=== PATIENT | female | born 1990 | race Caucasian/White ===

== ENCOUNTER 2018-11-14 05:46 | Inpatient (IN) | payer BC ==
--- NOTE | 2018-11-13 11:49 | PCM.LDHP ---
L&D History of Present Illness - General Date of Service: 11/13/18 Admit Problem/Dx: Admission Diagnosis/Problem Admission Diagnosis/Problem Source of Information: Patient History Limitations: Reports: No Limitations - History of Present Illness Introduction:: Brent Castle is a 27 year old at 38 weeks 6 days (SE[place]STI[place]N 11/21/2018) by LMP consistent with 13 week ultrasound who presents for pre-operative appointment for schedule repeat section on 11/14/2018. She is overall doing well at today's appointment. She reports that she continues to have some occasional migraine headaches that are able to be controlled with Fioricet. She also reports that she has had several outbreaks of her psoriasis on her hands especially on the fingers on the left hand but overall minimal amounts of rashes due to the psoriasis. She reports that she does have 10-12 Jasiel Ruvalcaba contractions throughout the day. These are more common with movement. They are not regular or painful. She denies any leaking of fluid or vaginal bleeding. She reports good movement. Timing/Duration: Reports: intermittent (approximately 10-12 mild contractions throughout the day, not regular) Location, : Reports: Pelvic, Uterus Quality: Reports: Pressure Severity: Mild Pain Score: 2 Improves with: Reports: None Worsens with: Reports: Movement Associated Symptoms: Denies: vaginal bleeding, vaginal discharge, vaginal fluid Present Illness Comments:: Brent Castle is a 27-year-old 002 at 38 weeks 6 days by LMP consistent with 13 week ultrasound who is scheduled for a repeat section on 2017. She'll be 39 weeks 0 days on that day. She has had routine care with Dr. Morejon starting at 13 weeks gestational age. Her 2 previous pregnancies have ended with delivery via . The first was done for intolerance of labor in the second was a scheduled repeat section. She desires to have a repeat section with this delivery. Review of her labs shows B- blood type with negative antibody screen. Her hematocrit was 31.5 with hemoglobin of 10.9 and platelets of 216 on 2017. Her gonorrhea and chlamydia tests were both negative. She is rubella immune. Her RPR, hepatitis B surface antigen and HIV tests are all negative. Her TSH value on 07/07/2018 was 2.708 which is a normal value. She had a normal anatomy ultrasound done on 07/15/2018 with a posterior placenta. There is no evidence of previa on this ultrasound. She had a normal one-hour glucose tolerance test with a value of 92. Her repeat CBC showed hematocrit of 33.0 and hemoglobin of 11.2 with platelets of 207 on 08/18/2018. She was given RhoGAM injection on 08/18/2018 after her antibody screen test was negative at that time. Her GBS swab was negative on 10/27/2018. Her has been complicated by: * History of section 2, desires repeat. Repeat section scheduled for 11/06/2018 * Rh- status in . She received RhoGAM at 26 weeks gestational age. * Migraine headaches in that have been able to be controlled with Fioricet * History of psoriasis with minimal amount of outbreaks during the . * History of anxiety and depression not requiring medication during the * Tobacco use prior to - Related Data Allergies/Adverse Reactions: Allergies Allergy/AdvReac Type Severity Reaction Status Date / Time No Known Allergies Allergy Verified 10/10/14 12:16 Home Medications: Home Meds Acetaminophen/Caffeine [Excedrin Tension Headache] 1 tab PO ASDIRECTED 10/10/14 [History] Ondansetron [Zofran ODT] 4 mg PO Q6H PRN #10 tab.dis 10/10/14 [Rx] oxyCODONE HCl/Acetaminophen [Percocet 5-325 mg Tablet] 1 each PO Q6H PRN #15 tablet 10/10/14 [Rx] Acetaminophen/HYDROcodone [[place] 325-5 MG] 1 tab PO Q6H PRN #12 tablet 05/22/15 [Rx] Acetaminophen/Butalbital/Caff [Fioricet 325-50-40 MG] 1 - 2 each PO Q6H PRN #30 tab 10/06/18 [Rx] Past Medical History Other Genitourinary History: Nephrotic syndromes 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 Musculoskeletal History: Reports: Arthritis Neurological History: Reports: Migraines Psychiatric History: Reports: Anxiety, Depression Hematologic History: Reports: Anemia Dermatologic History: Reports: Psoriasis - Past Surgical History HEENT Surgical History: Reports: Other (See Below) ([place] teeth, 2005) GI Surgical History: Reports: Cholecystectomy (10/2014) Female Surgical History: Reports: Section (x 2) Social & Family History - Tobacco Use Smoking Status *Q: Former Smoker Tobacco Use Within Last Twelve Months: Cigarettes - Tobacco Core Measures Tobacco Use/Smoking Within Last 30 Days: No Smokeless Tobacco Use in Last 30 Days: No - Alcohol Use Alcohol Use History: No - Recreational Drug Use Recreational Drug Use: No Drug Use in Last 12 Months: No - Living Situation & Occupation Living situation: Reports: , with Spouse H&P Review of Systems - Review of Systems: Review Of Systems: See Below General: Denies: Fever, Chills, Malaise, Weakness, Fatigue HEENT: Reports: Headaches (migraines). Denies: Rhinitis, Post Nasal Drip, Sinus Congestion, Sore Throat, Visual Changes Pulmonary: Denies: Shortness of Breath, Wheezing, Cough Cardiovascular: Denies: Chest Pain, Palpitations, Dyspnea on Exertion Gastrointestinal: Denies: Abdominal Pain, Constipation, Diarrhea, Nausea, Vomiting Genitourinary: Denies: Dysuria, Frequency, Burning, Pain, Urgency Musculoskeletal: Reports: Back Pain. Denies: Joint Pain, Muscle Pain Skin: Reports: Rash (psoriasis rash on bilateral arms and hands). Denies: Lesions Psychiatric: Denies: Depression, Anxiety Hematologic/Lymphatic: Reports: Anemia L&D Exam - Exam Exam: See Below - Vital Signs Vital Signs: BP: 110/62 Weight: 88.904 kg - OB Specific Fundal Height In cm: 38 Contraction Duration (sec): 45 Contraction Frequency (min): 30+ Contraction Intensity: Mild Movement: Active Heart Tones: Present Heart Tones per Min: 127 Presentation: Vertex Estimated Weight: 7.5-8 pounds by Kevin's - Exam General: Alert, Oriented HEENT: Conjunctiva Clear, EOMI Neck: Supple, Trachea Midline. No: Thyromegaly Lungs: Clear to Auscultation, Normal Respiratory Effort Cardiovascular: Regular Rate, Regular Rhythm GI/Abdominal Exam: Normal Bowel Sounds, Soft, Non-Tender, No Distention, Other ( Gravid). No: Guarding, Rigid, Rebound Genitourinary: Other (Declines vaginal exam) Extremities: Normal Inspection, No Pedal Edema Skin: Warm, Dry, Intact Psychiatric: Alert, Normal Affect, Normal Mood - Problem List (1) 39 weeks gestation of SNOMED Code(s): 87612208 ICD Code: Z3A.39 - 39 WEEKS GESTATION OF Status: Acute (2) History of delivery affecting SNOMED Code(s): 925118481, 432653097 ICD Code: O34.219 - MATERNAL CARE FOR UNSP TYPE SCAR FROM PREVIOUS DEL Status: Acute (3) History of 2 sections SNOMED Code(s): 174595384 ICD Code: Z98.891 - HISTORY OF UTERINE SCAR FROM PREVIOUS SURGERY Status: Acute (4) Anxiety SNOMED Code(s): 62772850 ICD Code: F41.9 - ANXIETY DISORDER, UNSPECIFIED Status: Acute (5) Depression SNOMED Code(s): 25379267 ICD Code: F32.9 - MAJOR DEPRESSIVE DISORDER, SINGLE EPISODE, UNSPECIFIED Status: Acute (6) Psoriasis SNOMED Code(s): 3037599 ICD Code: L40.9 - PSORIASIS, UNSPECIFIED Status: Acute (7) Migraine SNOMED Code(s): 66453624 ICD Code: G43.909 - MIGRAINE, UNSP, NOT INTRACTABLE, WITHOUT STATUS MIGRAINOSUS Status: Acute Problem List Initiated/Reviewed/Updated: Yes Assessment/Plan Comment:: Admit to inpatient following repeat section NST prior to section Place IV and have Lactated Ringer's at 125 ml/hr Nothing by mouth Activity as tolerated CBC and type and screen Plan for spinal injection for anesthesia Plans to breast-feed after delivery Ancef 2 g IV prior to procedure for antibiotic prophylaxis Delvin Morejon M.D. 12:07 PM 11/13/2018
[~2018-11-14 05:46] MED LIST: Citric Acid/Sodium Citrate Solution 30 ML Cup PO ONE; Metoclopramide 10 MG/2 ML SDV IVPUSH ONE; Nalbuphine 20 MG/ML 1 ML Syringe IVPUSH PRN; Oxytocin/Lactated Ringers 10 UNIT/1,000 ML BAG IV SCH; Sodium Chloride 0.9% 10 ML Syringe FLUSH PRN; ceFAZolin 2 GM in Premix Bag 1 BAG IV ONE
[2018-11-14] MEDS: Lactated Ringers 1,000 ML IV SCH ×2 (06:34→07:26)
[2018-11-14] MEDS ORDERED: Morphine PF 1 MG/ML Amp ONE (06:50)
[2018-11-14] MEDS ORDERED: Ondansetron 4 MG/2 ML SDV ONE (06:51)
[2018-11-14] MEDS ORDERED: Oxytocin 10 Units/1 ML SDV ONE (06:51)
[2018-11-14] MEDS ORDERED: Bupivacaine 0.5% 30 ML SDV ONE (06:55)
[2018-11-14] MEDS ORDERED: ceFAZolin 1 GM Vial ONE (06:56)
--- NOTE | 2018-11-14 07:24 | PCM.PREANE ---
Preanesthetic Assessment - Procedure Proposed Procedure: Repeat C Section - Anesthesia/Transfusion/Family Hx Anesthesia History: Prior Anesthesia Reaction Type of Anesthesia Reaction: Excessive Itching (from previous c sections pt stated due to duramorph used in spinals ) Family History of Anesthesia Reaction: No Transfusion History: No Prior Transfusion(s) Additional History: nephrotic syndrome (in remission for past 10 years per patient) - Review of Systems General: No Symptoms Pulmonary: Other (ZACHARIAH but does not use CPAP) Cardiovascular: No Symptoms Gastrointestinal: No Symptoms Neurological: Headache (migraines ) Other: Reports: None - Physical Assessment NPO Status Date: 11/13/18 NPO Status Time: 22:00 Pulse: 82 O2 Sat by Pulse Oximetry: 98 Respiratory Rate: 16 Blood Pressure: 111/68 Temperature: 36.6 C Height: 1.63 m Weight: 88.904 kg Mental Status: Alert & Oriented x3 Airway Class: Mallampati = 1 Dentition: Reports: Normal Dentition Thyro-Mental Finger Breadths: 3 Mouth Opening Finger Breadths: 3 ROM/Head Extension: Full Lungs: Clear to Auscultation, Normal Respiratory Effort Cardiovascular: Regular Rate, Regular Rhythm - Lab Values: Laboratory Last Values WBC 6.72 K/mm3 (3.98-10.04) 11/14/18 06:22 RBC 3.15 M/mm3 (3.98-5.22) L 11/14/18 06:22 Hgb 10.1 gm/L (11.2-15.7) L 11/14/18 06:22 Hct 29.9 % (34.1-44.9) L 11/14/18 06:22 MCV 94.9 fl (79.4-94.8) H 11/14/18 06:22 MCH 32.1 pg (25.6-32.2) 11/14/18 06:22 MCHC 33.8 g/dl (32.2-35.5) 11/14/18 06:22 RDW Std Deviation 45.4 fL (36.4-46.3) 11/14/18 06:22 Plt Count 188 K/mm3 (182-369) 11/14/18 06:22 MPV 10.1 fl (9.4-12.3) 11/14/18 06:22 Neut % (Auto) 61.2 % (34.0-71.1) 11/14/18 06:22 Lymph % (Auto) 25.4 % (19.3-51.7) 11/14/18 06:22 [place] % (Auto) 10.7 % (4.7-12.5) 11/14/18 06:22 Eos % (Auto) 2.2 (0.7-5.8) 11/14/18 06:22 Baso % (Auto) 0.1 % (0.1-1.2) 11/14/18 06:22 Neut # (Auto) 4.10 K/mm3 (1.56-6.13) 11/14/18 06:22 Lymph # (Auto) 1.71 K/mm3 (1.18-3.74) 11/14/18 06:22 [place] # (Auto) 0.72 K/mm3 (0.24-0.36) H 11/14/18 06:22 Eos # (Auto) 0.15 K/mm3 (0.04-0.36) 11/14/18 06:22 Baso # (Auto) 0.01 K/mm3 (0.01-0.08) 11/14/18 06:22 - Allergies Allergies/Adverse Reactions: Allergies Allergy/AdvReac Type Severity Reaction Status Date / Time No Known Allergies Allergy Verified 10/10/14 12:16 - Blood Blood Available: No Product(s) Available: None - Anesthesia Plan Pre-Op Medication Ordered: None - Acknowledgements Anesthesia Type Planned: Spinal (pt wished to aviod duramorph due to excessive itching from previous 2 c sections. 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: Musculoskeletal History: Reports: Arthritis Neurological History: Reports: Migraines Psychiatric History: Reports: Anxiety, Depression Hematologic History: Reports: Anemia Dermatologic History: Reports: Psoriasis - Past Surgical History HEENT Surgical History: Reports: Other (See Below) ([place] teeth, 2006) GI Surgical History: Reports: Cholecystectomy (10/2014) Female Surgical History: Reports: Section (x 2) - SUBSTANCE USE Smoking Status *Q: Former Smoker (hasnt smoked while ) Tobacco Use Within Last Twelve Months: Cigarettes Recreational Drug Use History: No - HOME MEDS Home Medications: Home Meds Acetaminophen/Caffeine [Excedrin Tension Headache] 1 tab PO ASDIRECTED 10/10/14 [History] Ondansetron [Zofran ODT] 4 mg PO Q6H PRN #10 tab.dis 10/10/14 [Rx] oxyCODONE HCl/Acetaminophen [Percocet 5-325 mg Tablet] 1 each PO Q6H PRN #15 tablet 10/10/14 [Rx] Acetaminophen/HYDROcodone [[place] 325-5 MG] 1 tab PO Q6H PRN #12 tablet 05/22/15 [Rx] Acetaminophen/Butalbital/Caff [Fioricet 325-50-40 MG] 1 - 2 each PO Q6H PRN #30 tab 10/06/18 [Rx] - CURRENT (IN HOUSE) MEDS Current Meds: Current Medications Lactated Ringer's (Ringers, Lactated) 1,000 mls @ 125 mls/hr IV ASDIRECTED [facility] Last Admin: 11/14/18 06:34 Dose: 125 mls/hr Oxytocin/Lactated Ringer's (Pitocin In Lr 10 Units/1,000 Ml) 10 unit in 1,000 mls @ 100 mls/hr IV ASDIRECTED [facility] Nalbuphine HCl (Nubain) 10 mg IVPUSH Q2H PRN PRN Reason: pain Sodium Chloride (Saline Flush) 10 ml FLUSH ASDIRECTED PRN PRN Reason: Keep Vein Open Discontinued Medications Bupivacaine HCl (Marcaine 0.5%) Confirm Administered Dose 30 ml .ROUTE .STK-MED ONE Stop: 11/14/18 06:56 Cefazolin Sodium (Ancef) Confirm Administered Dose 2 gm .ROUTE .STK-MED ONE Stop: 11/14/18 06:57 Citric Acid/Sodium Citrate (Bicitra Solution) 30 ml PO ONETIME ONE Stop: 11/14/18 01:16 Cefazolin Sodium/Dextrose 2 gm (/ Premix) 50 mls @ 100 mls/hr IV ONETIME ONE Stop: 11/14/18 00:57 Metoclopramide HCl (Reglan) 10 mg IVPUSH ONETIME ONE Stop: 11/14/18 00:29 Morphine Sulfate (Duramorph Pf) Confirm Administered Dose 1 mg .ROUTE .STK-MED ONE Stop: 11/14/18 06:51 Ondansetron HCl (Zofran) Confirm Administered Dose 4 mg .ROUTE .STK-MED ONE Stop: 11/14/18 06:52 Oxytocin (Pitocin) Confirm Administered Dose 20 unit .ROUTE .STK-MED ONE Stop: 11/14/18 06:52
[2018-11-14] MEDS ORDERED: Meperidine PF 50 MG/ML Syringe ONE (08:02)
[2018-11-14] MEDS ORDERED: Ketorolac 30 MG/ML SDV ONE (08:23)
[2018-11-14] MEDS ORDERED: Lactated Ringers 1,000 ML ONE ×2 (08:34)
--- NOTE | 2018-11-14 08:46 | PCM.POSTAN ---
POST ANESTHESIA ASSESSMENT - MENTAL STATUS Mental Status: Alert, Oriented - VITAL SIGNS Pulse Rate: 77 SaO2: 100 Resp Rate: 13 Blood Pressure: 104/66 Temperature: 36.3 C - RESPIRATORY Respiratory Status: Respiratory Rate WNL, Airway Patent, O2 Saturation Stable - CARDIOVASCULAR CV Status: Pulse Rate WNL, Blood Pressure Stable - GASTROINTESTINAL GI Status: No Symptoms - PAIN Pain Score: 0 - POST OP HYDRATION Hydration Status: Adequate & Stable
[2018-11-14] MEDS ORDERED: Promethazine 6.25 MG in Sodium Chloride 0.9% 50 ML IV PRN (08:47)
[2018-11-14] MEDS ORDERED: fentaNYL 100 MCG/2 ML SDV IVPUSH PRN ×2 (08:47→10:25)
[2018-11-14] MEDS ORDERED: Meperidine 50 MG/ML Vial IVPUSH PRN ×2 (08:47→10:25)
[2018-11-14] MEDS ORDERED: diphenhydrAMINE 50 MG/ML SDV IVPUSH PRN ×3 (08:47→10:25)
--- NOTE | 2018-11-14 09:06 | PCM.OPNOTE ---
- General Post-Op/Procedure Note Date of Surgery/Procedure: 11/14/18 Operative Procedure(s): Repeat section Findings: Live male delivered in vertex position at 0800. Apgars of 8 and 9. weight of 3320 g (7 lbs. 5 oz.). Overall normal-appearing uterus and bilateral fallopian tubes and ovaries. Minimal amount of scarring intra- abdominally. There was one omental adhesion to the anterior abdominal wall that was cut using cautery. Remainder of the internal abdomen felt free of adhesions. Pre Op Diagnosis: History of section 2 at 39 weeks gestational age and desires repeat section Post-Op Diagnosis: Same, status post repeat section Anesthesia Technique: Spinal Primary Surgeon: Delvin Morejon Anesthesia Provider: Elie Ontiveros Head Men'S Golf Coach: Zion Escoto Reason Head Men'S Golf Coach Was Necessary: Patient safety and reduction of morbidity and mortality Role of Head Men'S Golf Coach: Retraction and assistance with the surgical procedure Pathology: None Fluid Replacement, Intraop: 1,400 Output, Urine Amount: 100 EBL in mLs: 1,000 Complications: None Condition: Good Free Text/Narrative:: Procedure in Detail: The patient was seen on labor and delivery and the risks, benefits and complications were discussed with the patient. The patient desired to proceed with section and appropriate consents were reviewed. The patient was taken to operating room #1. A Time Out was held and the patient was identified using 2 identifiers and the procedure was confirmed. The patient was given spinal anesthesia and was placed in dorsal supine position with leftward tilt. The patient was prepped and draped in the usual sterile manner. The abdominal skin was tested and the spinal anesthesia was found to be adequate. The skin was injected with 0.5% marcaine for local anesthesia. A Pfannenstiel skin incision was made and carried down through the subcutaneous tissue to the fascia with the scapel. The fascia was nicked in the midline using a scalpel and the fascial incision was extended transversely with Aguilera scissors. The inferior aspect of the fascia was grasped with Katty clamps and tented upwards. The fascia was from the underlying rectus muscle bluntly and sharply with Aguilera scissors. Attention was then turned to the superior aspect of the fascia and was grasped using Katty clamps and tented upwards. The underlying rectus muscle was dissected off bluntly and sharply with Aguilera scissors. The midline of the rectus muscles was identified and incised using Aguilera scissors. The peritoneum was able to be identified and entered bluntly. The utero-vesical peritoneal reflection was identified and the peritoneum was incised with [place] scissors and transversely extended. The bladder blade was inserted and the lower uterine segment was identified. A low transverse uterine incision was made sharply with a scalpel and extended laterally bluntly. The infant's head was brought to the uterine incision, the bladder blade was removed and the was delivered atraumatically. There was a single nuchal cord that was reduced prior to delivery. On 11/14/2018 a live male infant was delivered in vertex position at 0800, wt of 3320 grams, 7 pounds and 5 ounces. APGARS were 8 & 9. The nose and mouth were suctioned with bulb suction, the cord was doubly clamped and cut and infant was transferred to the awaiting cocktail server. The placenta was removed intact and appeared normal with a three vessel cord. The uterus was exteriorized and the uterine cavity was cleaned using lap sponges. The hysterotomy was closed with a running locked suture of 0-Vicryl. There was an area near the left edge of the inferior hysterotomy edge that was bleeding and 2 [id number] sutures with 0 Vicryl were placed to Allow the bleeding. A second suture of 0-Vicryl was used to imbricate the hysterotomy. The hysterotomy was hemostatic after Bovie cautery near the inferior right edge of the incision. The uterus, tubes and ovaries appeared overall normal. The uterus was then returned into the abdominal cavity. The hysterotomy was noted to remain hemostatic inside the abdominal cavity. There was one band of omental adhesion to the fascia that was incised using Bovie cautery. The fascia was noted to be hemostatic and the fascia was then reapproximated with running sutures of 0-Vicryl. The skin was reapproximated using 4-0 Monocryl and Steri-strips were applied over the incision. Instrument, sponge, and needle counts were correct prior to the abdominal closure and at the conclusion of the case.
[2018-11-14] MEDS ORDERED: Lanolin 100% Cream 7 GM Tube TOP PRN (10:02)
[2018-11-14] MEDS ORDERED: Naloxone 0.4 MG/ML SDV IVPUSH PRN (10:02)
[2018-11-14] MEDS ORDERED: Oxytocin/Lactated Ringers 10 UNIT/1,000 ML BAG IV SCH (10:02)
[2018-11-14] MEDS ORDERED: diphenhydrAMINE 50 MG/ML SDV IV PRN (10:02)
[2018-11-14] MEDS ORDERED: ePHEDrine 50 MG/ML SDV IVPUSH PRN (10:02)
[2018-11-14] MEDS ORDERED: Acetaminophen/oxyCODONE 325-5 MG Tab PO PRN ×2 (10:02)
[2018-11-14] MEDS ORDERED: Lactated Ringers 1,000 ML IV SCH (10:02)
[2018-11-14] MEDS ORDERED: Ondansetron 4 MG Tab.DIS PO PRN (10:02)
[2018-11-14] MEDS ORDERED: Ondansetron 4 MG/2 ML SDV IVPUSH PRN (10:25)
[2018-11-14] MEDS ORDERED: HYDROmorphone 0.5 MG/0.5 ML Syringe IVPUSH PRN (10:25)
[2018-11-14] MEDS: Acetaminophen/oxyCODONE 325-5 MG Tab PO PRN ×2 (12:11→17:58)
[2018-11-14] MEDS: Prenatal Multivitamin with Calcium/Folic Acid/Iron Tab PO SCH (12:13)
[2018-11-14] MEDS: Ketorolac 30 MG/ML SDV IVPUSH SCH ×2 (14:25→21:06)
[2018-11-14] MEDS: Docusate Sodium 100 MG Cap PO PRN (18:52)
[2018-11-15] MEDS: Acetaminophen/oxyCODONE 325-5 MG Tab PO PRN ×3 (01:42→16:16)
[2018-11-15] MEDS: Ketorolac 30 MG/ML SDV IVPUSH SCH (03:54)
[2018-11-15] MEDS: Docusate Sodium 100 MG Cap PO PRN ×2 (08:05→20:19)
[2018-11-15] MEDS: Prenatal Multivitamin with Calcium/Folic Acid/Iron Tab PO SCH (08:05)
--- NOTE | 2018-11-15 08:54 | PCM.SN ---
- Free Text/Narrative Note: note: Patient is doing well in the period. Minimal lochia, voiding well, ambulated without problems. Nursing without concerns. Patient is afebrile, vital signs are stable Lungs are clear with good breath sounds in all lung hanson. Cardiovascular exam shows regular rate and rhythm without murmurs. Abdomen is flat, soft, uterus is below the umbilicus and is firm and nontender. Appears to be intact, nontender. No evidence of infection, seroma or hematoma. Steri-Strips are intact. Legs are nontender. Minimal edema noted. Assessment: /postop day 1 recovery going well. Plan: Routine /postop care. Patient be discharged home within the next 24-48 hours.
[2018-11-15] MEDS: Ibuprofen 600 MG Tab PO PRN ×2 (13:05→20:19)
[2018-11-16] MEDS: Acetaminophen/oxyCODONE 325-5 MG Tab PO PRN ×2 (03:11→09:18)
--- NOTE | 2018-11-16 06:16 | PCM.DCSUM1 ---
Discharge Summary - Hospital Course Free Text/Narrative:: Brent is a 27-year-old multigravida white female who was admitted on 11/06/2018 for elective repeat section. She had 2 previous sections. Please see operative report for details. She delivered a live male at 0800 hrs. Weight was 3320 g (7 lbs. 5 oz.), Apgars of 8 and 9. She was at 39 weeks gestational age. patient has done well. She is breast-feeding. She is ambulating well , has had no problems with ambulation. Diagnosis: Stroke: No - Discharge Data Discharge Date: 11/16/18 Discharge Disposition: Home, Self-Care 01 Condition: Good - Patient Summary/Data Operative Procedure(s) Performed: Repeat section - Patient Instructions Diet: Regular Diet as Tolerated (Nursing diet with increased calories and calcium is recommended) Activity: As Tolerated (No lifting greater than 15 pounds or driving a car 1 week. No intercourse or tampons until seen back in 4 weeks.) Driving: Do Not Drive Showering/Bathing: May Shower (Times next week thereafter may also take a bath) Wound/Incision Care: Keep Operative Site/Wound Site Clean and Dry Notify Provider of: Fever, Increased Pain, Swelling and Redness, Nausea and/or Vomiting - Discharge Plan Home Medications: Home Meds L.acidoph,Paracasei, B.lactis [Probiotic] 1 tab PO DAILY 11/14/18 [History] PNV95/Ferrous Fumarate/FA [ Tablet] 1 tab PO DAILY 11/14/18 [History] Acetaminophen/oxyCODONE [Percocet 325-5 MG] 1 - 2 tab PO Q6H PRN tablet [Rx] Ibuprofen [Motrin] 600 mg PO Q6H PRN tablet 11/16/18 [Rx] Referrals: Delvin Umanzor MD [Physician] - (Return to clinicDr. Wolf2 weeks.) - Discharge Summary/Plan Comment DC Time >30 min.: No Discharge Summary/Plan Comment: Discharge instructions: 1. Discharge home 2. Diet, activity and follow-up discussed with patient. Recommend nursing diet with increased calories and calcium. 3. Precautions given concern increased pain, bleeding, temperature, signs/ symptoms of DVT/PE. 4. Medications per home medication was printed, discussed with and given to the patient. 5. Return to clinic-Dr. umanzor[facility] in 2 weeks. Diagnosis: Term -delivered Condition: Good - Patient Data Vitals - Most Recent: Last Vital Signs Temp 36.7 C 11/16/18 03:08 Pulse 83 11/16/18 03:08 Resp 17 11/16/18 03:08 BP 123/73 11/16/18 03:08 Pulse Ox 97 11/16/18 03:08 Weight - Most Recent: 88.904 kg I&O - Last 24 hours: Intake & Output 11/15/18 11/15/18 11/16/18 14:59 22:59 06:59 Intake Total 380 0 Output Total 250 Balance 130 0 Lab Results - Last 24 hrs: Laboratory Results - last 24 hr 11/15/18 Range/Units 06:15 WBC 9.12 (3.98-10.04) K/mm3 RBC 2.61 L (3.98-5.22) M/mm3 Hgb 8.2 L (11.2-15.7) gm/L Hct 25.1 L (34.1-44.9) % MCV 96.2 H (79.4-94.8) fl MCH 31.4 (25.6-32.2) pg MCHC 32.7 (32.2-35.5) g/dl RDW Std Deviation 45.3 (36.4-46.3) fL Plt Count 165 L (182-369) K/mm3 MPV 10.0 (9.4-12.3) fl Neut % (Auto) 76.9 H (34.0-71.1) % Lymph % (Auto) 12.2 L (19.3-51.7) % [place] % (Auto) 9.4 (4.7-12.5) % Eos % (Auto) 1.3 (0.7-5.8) Baso % (Auto) 0.1 (0.1-1.2) % Neut # (Auto) 7.01 H (1.56-6.13) K/mm3 Lymph # (Auto) 1.11 L (1.18-3.74) K/mm3 [place] # (Auto) 0.86 H (0.24-0.36) K/mm3 Eos # (Auto) 0.12 (0.04-0.36) K/mm3 Baso # (Auto) 0.01 (0.01-0.08) K/mm3 Med Orders - Current: Current Medications Diphenhydramine HCl (Benadryl) 25 mg IVPUSH Q6H PRN PRN Reason: Itching or Nausea Diphenhydramine HCl (Benadryl) 25 mg IV Q4H PRN PRN Reason: Itching Docusate Sodium (Colace) 100 mg PO Q12H PRN PRN Reason: Constipation Last Admin: 11/15/18 20:19 Dose: 100 mg Emollient Ointment (Lansinoh Hpa) 0 gm TOP ASDIRECTED PRN PRN Reason: Sore Nipples Ephedrine Sulfate (Ephedrine Sulfate) 5 mg IVPUSH SEECOMMENT PRN PRN Reason: Other Oxytocin/Lactated Ringer's (Pitocin In Lr 10 Units/1,000 Ml) 10 unit in 1,000 mls @ 100 mls/hr IV .CONTINUOUS TONI Ibuprofen (Motrin) 600 mg PO Q6H PRN PRN Reason: Pain Last Admin: 11/15/18 20:19 Dose: 600 mg Naloxone HCl (Narcan) 0.1 mg IVPUSH SEECOMMENT PRN PRN Reason: Respiratory Depression Ondansetron HCl (Zofran Odt) 4 mg PO Q4H PRN PRN Reason: Nausea/Vomiting Oxycodone/Acetaminophen (Percocet 325-5 Mg) 1 - 2 tab PO Q6H PRN PRN Reason: Pain (moderate 4-6) Last Admin: 11/16/18 03:11 Dose: 2 tab Prenat Multivit/[place]acon/Iron/Folic Ac ( Plus Iron) 1 each PO DAILY [facility] Last Admin: 11/15/18 08:05 Dose: 1 each Discontinued Medications Bupivacaine HCl (Marcaine 0.5%) Confirm Administered Dose 30 ml .ROUTE .STK-MED ONE Stop: 11/14/18 06:56 Last Admin: 11/14/18 07:56 Dose: 20 ml Cefazolin Sodium (Ancef) Confirm Administered Dose 2 gm .ROUTE .STK-MED ONE Stop: 11/14/18 06:57 Citric Acid/Sodium Citrate (Bicitra Solution) 30 ml PO ONETIME ONE Stop: 11/14/18 01:16 Last Admin: 11/14/18 07:20 Dose: 30 ml Diphenhydramine HCl (Benadryl) 25 mg IVPUSH Q6H PRN PRN Reason: Pruritis Stop: 11/14/18 11:45 Diphenhydramine HCl (Benadryl) 25 mg IVPUSH Q6H PRN PRN Reason: Pruritis Stop: 11/14/18 13:30 Fentanyl (Sublimaze) 50 mcg IVPUSH Q5M PRN PRN Reason: Pain Stop: 11/14/18 11:45 Cefazolin Sodium/Dextrose 2 gm (/ Premix) 50 mls @ 100 mls/hr IV ONETIME ONE Stop: 11/14/18 00:57 Lactated Ringer's (Ringers, Lactated) 1,000 mls @ 125 mls/hr IV ASDIRECTED [facility] Last Admin: 11/14/18 07:26 Dose: 125 mls/hr Oxytocin/Lactated Ringer's (Pitocin In Lr 10 Units/1,000 Ml) 10 unit in 1,000 mls @ 100 mls/hr IV ASDIRECTED [facility] Lactated Ringer's (Ringers, Lactated) Confirm Administered Dose 1,000 mls @ as directed .ROUTE .STK-MED ONE Stop: 11/14/18 08:35 Lactated Ringer's (Ringers, Lactated) Confirm Administered Dose 1,000 mls @ as directed .ROUTE .STK-MED ONE Stop: 11/14/18 08:35 Promethazine HCl 6.25 mg/ (Sodium Chloride) 50.25 mls @ 100 mls/hr IV ONETIME PRN PRN Reason: Nausea/Vomiting Stop: 11/14/18 11:45 Lactated Ringer's (Ringers, Lactated) 1,000 mls @ 125 mls/hr IV ASDIRECTED [facility] Stop: 11/14/18 18:01 Last Admin: 11/14/18 12:12 Dose: 125 mls/hr Ketorolac Tromethamine (Toradol) Confirm Administered Dose 30 mg .ROUTE .STK- MED ONE Stop: 11/14/18 08:24 Ketorolac Tromethamine (Toradol) 30 mg IVPUSH Q6H [facility] Stop: 11/15/18 02:31 Last Admin: 11/15/18 03:54 Dose: 30 mg Meperidine HCl (Demerol) Confirm Administered Dose 50 mg .ROUTE .STK-MED ONE Stop: 11/14/18 08:03 Meperidine HCl (Meperidine) 12.5 mg IVPUSH ONETIME PRN PRN Reason: Shivering Stop: 11/14/18 11:45 Metoclopramide HCl (Reglan) 10 mg IVPUSH ONETIME ONE Stop: 11/14/18 00:29 Last Admin: 11/14/18 07:20 Dose: 10 mg Morphine Sulfate (Duramorph Pf) Confirm Administered Dose 1 mg .ROUTE .STK-MED ONE Stop: 11/14/18 06:51 Nalbuphine HCl (Nubain) 10 mg IVPUSH Q2H PRN PRN Reason: pain Ondansetron HCl (Zofran) Confirm Administered Dose 4 mg .ROUTE .STK-MED ONE Stop: 11/14/18 06:52 Oxycodone/Acetaminophen (Percocet 325-5 Mg) 1 tab PO Q6H PRN PRN Reason: Pain (moderate 4-6) Oxytocin (Pitocin) Confirm Administered Dose 20 unit .ROUTE .STK-MED ONE Stop: 11/14/18 06:52 Sodium Chloride (Saline Flush) 10 ml FLUSH ASDIRECTED PRN PRN Reason: Keep Vein Open
[2018-11-16] MEDS: Ibuprofen 600 MG Tab PO PRN (06:23)
[2018-11-16] MEDS: Prenatal Multivitamin with Calcium/Folic Acid/Iron Tab PO SCH (09:18)
[2018-11-16 09:20] VITALS: BP 120/77
== END 2018-11-16 13:30 | disposition home or self-care (01) | DRG 540 ==
LOC: JD.OB 05:46
PROVIDERS: ADMIT Obstetrics & Gynecology; ATTEND Obstetrics & Gynecology
PROC: 10D00Z1 Extraction of Products of Conception, Low, Open Approach (ICD-10-PCS; principal; 2018-11-14)
DX: O34.211 Maternal care for low transverse scar from previous cesarean delivery (principal); O69.81X0 Labor and delivery complicated by cord around neck, without compression, not applicable or unspecified; N85.8 Other specified noninflammatory disorders of uterus; Z3A.39 39 weeks gestation of pregnancy; Z37.0 Single live birth; O26.899 Other specified pregnancy related conditions, unspecified trimester; G43.909 Migraine, unspecified, not intractable, without status migrainosus; L40.9 Psoriasis, unspecified; Z87.891 Personal history of nicotine dependence; Z79.899 Other long term (current) drug therapy
CPT/HCPCS: 36415; 59025; 85025; 86592; 86850; 86900; 86901; 94762; A9270-GY; J0690; J1885; J2175; J2274; J2405; J2590; J2765; J3490; J7120

== ENCOUNTER 2019-01-13 06:49 | Day surgery (SDC) | payer BC ==
[~2019-01-13 06:49] MED LIST changes: -Citric Acid/Sodium Citrate Solution 30 ML Cup PO ONE; +Lidocaine 1%/Sod Bicarbonate in NS 8.4% 1 ML Syringe IDERM PRN; -Metoclopramide 10 MG/2 ML SDV IVPUSH ONE; -Nalbuphine 20 MG/ML 1 ML Syringe IVPUSH PRN; -Oxytocin/Lactated Ringers 10 UNIT/1,000 ML BAG IV SCH; -ceFAZolin 2 GM in Premix Bag 1 BAG IV ONE
[2019-01-13] MEDS ORDERED: Bupivacaine 0.5% 30 ML SDV ONE (07:17)
[2019-01-13] MEDS: Lactated Ringers 1,000 ML IV SCH ×2 (07:20→12:35)
[2019-01-13] MEDS ORDERED: Lidocaine 1% 4 ML ONE (07:37)
[2019-01-13] MEDS ORDERED: Propofol 200 MG/20 ML SDV ONE (07:37)
[2019-01-13] MEDS ORDERED: Midazolam 1 MG/ML 2 ML SDV ONE (07:37)
[2019-01-13] MEDS ORDERED: ceFAZolin 1 GM Vial ONE (07:37)
[2019-01-13] MEDS ORDERED: Ondansetron 4 MG/2 ML SDV ONE (07:37)
[2019-01-13] MEDS ORDERED: Rocuronium 50 MG/5 ML Vial ONE ×2 (07:37→12:11)
[2019-01-13] MEDS ORDERED: Lactated Ringers 1,000 ML ONE ×2 (07:37→09:43)
[2019-01-13] MEDS ORDERED: fentaNYL 250 MCG/5 ML SDV ONE (07:37)
[2019-01-13] MEDS ORDERED: Dexamethasone 4 MG/ML 5 ML MDV ONE (07:38)
[2019-01-13] MEDS ORDERED: ePHEDrine/Normal Saline 25 MG/5 ML Syringe ONE (08:49)
[2019-01-13] MEDS ORDERED: Ketamine 500 mg/10 ML MDV ONE (08:57)
--- NOTE | 2019-01-13 09:07 | PCM.PREANE ---
Preanesthetic Assessment - Anesthesia/Transfusion/Family Hx Anesthesia History: Prior Anesthesia Reaction Type of Anesthesia Reaction: Excessive Itching Family History of Anesthesia Reaction: No Transfusion History: No Prior Transfusion(s) - Review of Systems General: No Symptoms (Hoarse voice, normal for her. Dry throat today. ) Pulmonary: No Symptoms (Former Smoker for 10 years quite 1 year ago. ) Cardiovascular: No Symptoms Gastrointestinal: No Symptoms Neurological: Headache (Migraines) Other: Reports: None (Nephrotic Syndrome 10 years ago, TMJ, Breast feeding. ), Depression, Anxiety - Physical Assessment NPO Status Date: 01/12/19 NPO Status Time: 23:30 O2 Sat by Pulse Oximetry: 97 Respiratory Rate: 16 Vital Signs: Last Vital Signs Temp 36.3 C 01/13/19 07:00 Pulse 65 01/13/19 07:00 Resp 16 01/13/19 07:00 BP 128/77 01/13/19 07:00 Pulse Ox 97 01/13/19 07:00 Height: 1.63 m Weight: 83.915 kg Mental Status: Alert & Oriented x3 Airway Class: Mallampati = 1 Dentition: Reports: Normal Dentition (Large front incisors. ) Thyro-Mental Finger Breadths: 3 Mouth Opening Finger Breadths: 3 ROM/Head Extension: Full Lungs: Clear to Auscultation, Normal Respiratory Effort Cardiovascular: Regular Rate, Regular Rhythm - Lab Values: Laboratory Last Values Urine Color Yellow (Yellow) 01/13/19 06:55 Urine Appearance Clear (Clear) 01/13/19 06:55 Urine pH 6.0 (5.0-8.0) 01/13/19 06:55 Ur Specific [place] 1.025 (1.005-1.030) 01/13/19 06:55 Urine Protein Negative (Negative) 01/13/19 06:55 Urine Glucose (UA) Negative (Negative) 01/13/19 06:55 Urine Ketones Negative (Negative) 01/13/19 06:55 Urine Occult Blood Negative (Negative) 01/13/19 06:55 Urine Nitrite Negative (Negative) 01/13/19 06:55 Urine Bilirubin Negative (Negative) 01/13/19 06:55 Urine Urobilinogen 0.2 (0.2-1.0) 01/13/19 06:55 Ur Leukocyte Esterase Negative (Negative) 01/13/19 06:55 Urine RBC 0-5 /hpf (0-5) 01/13/19 06:55 Urine WBC 0-5 /hpf (0-5) 01/13/19 06:55 Ur Epithelial Cells 0-5 /hpf (0-5) 01/13/19 06:55 Urine Bacteria Not seen /hpf (FEW) 01/13/19 06:55 Urine Mucus Not seen /hpf (FEW) 01/13/19 06:55 Urine HCG, Qual Negative (NEGATIVE) 01/13/19 06:55 Blood Type B NEGATIVE 01/13/19 07:13 Gel Antibody Screen Negative 01/13/19 07:13 - Allergies Allergies/Adverse Reactions: Allergies Allergy/AdvReac Type Severity Reaction Status Date / Time No Known Allergies Allergy Verified 01/12/19 16:05 - Anesthesia Plan Pre-Op Medication Ordered: Anxiolytic, Other (Ondansetron) - Acknowledgements Anesthesia Type Planned: General Anesthesia Pt an Appropriate Candidate for the Planned Anesthesia: Yes Alternatives and Risks of Anesthesia Discussed w Pt/Guardian: Yes Pt/Guardian Understands and Agrees with Anesthesia Plan: Yes PreAnesthesia Questionnaire HEENT History: Reports: Allergic Rhinitis, Cataract Cardiovascular History: Reports: None Respiratory History: Reports: None Gastrointestinal History: Reports: Other (See Below) Other Gastrointestinal History: nausea Genitourinary History: Reports: Other (See Below) Other Genitourinary History: nephrotic syndrome, frequency [employer]OR History: Reports: Other (See Below) Other OB/BYN History: pelvic pressure, menorrhagia Musculoskeletal History: Reports: Arthritis, Other (See Below) Other Musculoskeletal History: closed bilateral fib fractures, neck muscle spasms, pain, bilateral deltoid ligament ankle tears Neurological History: Reports: Migraines Psychiatric History: Reports: Anxiety, Depression Endocrine/Metabolic History: Reports: None Hematologic History: Reports: Anemia Immunologic History: Reports: None Oncologic (Cancer) History: Reports: None Dermatologic History: Reports: Psoriasis - Past Surgical History Head Surgeries/Procedures: Reports: None HEENT Surgical History: Reports: Oral Surgery Cardiovascular Surgical History: Reports: None Respiratory Surgical History: Reports: None GI Surgical History: Reports: Cholecystectomy Female Surgical History: Reports: Section Endocrine Surgical History: Reports: None Neurological Surgical History: Reports: None Oncologic Surgical History: Reports: None - SUBSTANCE USE Smoking Status *Q: Former Smoker Recreational Drug Use History: No - HOME MEDS Home Medications: Home Meds PNV95/Ferrous Fumarate/FA [ Tablet] 1 tab PO DAILY 11/14/18 [History] Acetaminophen [Tylenol Extra Strength] 1,000 mg PO Q6H PRN 01/12/19 [History] Butalb/Acetaminophen/Caffeine [Pggipk-Ymnaraqw-Kiwh 50-325-40] 1 - 2 tab PO Q6H PRN 01/12/19 [History] Cetirizine HCl [Zyrtec] 10 mg PO DAILY PRN 01/12/19 [History] Fluticasone Propionate [Flonase] 1 dose NASBOTH DAILY PRN 01/12/19 [History] Loratadine [Claritin] 10 mg PO DAILY PRN 01/12/19 [History] Ondansetron [Zofran] 4 mg PO Q4H PRN 01/12/19 [History] Promethazine [Phenergan] 12.5 mg PO Q6H PRN 01/12/19 [History] Triamcinolone Acetonide [Kenalog 0.1% Lotion] 1 dose TOP TID PRN 01/12/19 [ History] diphenhydrAMINE [Benadryl] 25 mg PO Q6H PRN 01/12/19 [History] - CURRENT (IN HOUSE) MEDS Current Meds: Current Medications Lactated Ringer's (Ringers, Lactated) 1,000 mls @ 125 mls/hr IV ASDIRECTED TONI Last Admin: 01/13/19 07:20 Dose: 125 mls/hr Lidocaine/Sodium Bicarbonate (Buffered Lidocaine 1% In Ns 8.4%) 0.25 ml IDERM ONETIME PRN PRN Reason: Prior to IV Start Last Admin: 01/13/19 07:20 Dose: 0.25 ml Sodium Chloride (Saline Flush) 10 ml FLUSH ASDIRECTED PRN PRN Reason: Keep Vein Open Discontinued Medications Bupivacaine HCl (Marcaine 0.5%) Confirm Administered Dose 30 ml .ROUTE .STK-MED ONE Stop: 01/13/19 07:18 Cefazolin Sodium (Ancef) Confirm Administered Dose 2 gm .ROUTE .STK-MED ONE Stop: 01/13/19 07:38 Dexamethasone (Dexamethasone) Confirm Administered Dose 20 mg .ROUTE .STK-MED ONE Stop: 01/13/19 07:39 Ephedrine Sulfate (Ephedrine In Ns) Confirm Administered Dose 25 mg .ROUTE .STK- MED ONE Stop: 01/13/19 08:50 Fentanyl (Sublimaze) Confirm Administered Dose 250 mcg .ROUTE .STK-MED ONE Stop: 01/13/19 07:38 Lidocaine HCl (Xylocaine-Mpf 1%) Confirm Administered Dose 4 mls @ as directed .ROUTE .STK-MED ONE Stop: 01/13/19 07:38 Lactated Ringer's (Ringers, Lactated) Confirm Administered Dose 1,000 mls @ as directed .ROUTE .STK-MED ONE Stop: 01/13/19 07:38 Ketamine HCl (Ketalar) Confirm Administered Dose 500 mg .ROUTE .ST-MED ONE Stop: 01/13/19 08:58 Lidocaine/Epinephrine (Xylocaine 1% With Epinephrine 1:100,000) Confirm Administered Dose 20 ml .ROUTE .STK-MED ONE Stop: 01/13/19 07:18 Midazolam HCl (Versed 1 Mg/Ml) Confirm Administered Dose 2 mg .ROUTE .STK-MED ONE Stop: 01/13/19 07:38 Ondansetron HCl (Zofran) Confirm Administered Dose 4 mg .ROUTE .STK-MED ONE Stop: 01/13/19 07:38 Propofol (Diprivan 20 Ml) Confirm Administered Dose 400 mg .ROUTE .STK-MED ONE Stop: 01/13/19 07:38 Rocuronium [place] (Zemuron) Confirm Administered Dose 50 mg .ROUTE .STK-MED ONE Stop: 01/13/19 07:38 Sodium Chloride (Normal Saline) Confirm Administered Dose 50 ml .ROUTE .STK-MED ONE Stop: 01/13/19 07:18
[2019-01-13] MEDS ORDERED: ePHEDrine 50 MG/ML SDV IVPUSH PRN (09:09)
[2019-01-13] MEDS ORDERED: diphenhydrAMINE 50 MG/ML SDV IVPUSH PRN (09:09)
[2019-01-13] MEDS ORDERED: Haloperidol Lactate 5 MG/ML SDV IVPUSH ONE (09:09)
[2019-01-13] MEDS ORDERED: HYDROmorphone 0.5 MG/0.5 ML Syringe IVPUSH PRN ×2 (09:09→17:08)
[2019-01-13] MEDS: Lidocaine 1% with EPINEPHrine 1:100,000 20 ML MDV ONE ×2 (09:18→09:32)
[2019-01-13] MEDS: Sodium Chloride 0.9% 50 ML SDV ONE ×2 (09:19→09:32)
--- NOTE | 2019-01-13 10:45 | PCM.POSTAN ---
POST ANESTHESIA ASSESSMENT - MENTAL STATUS Mental Status: Alert, Oriented - VITAL SIGNS Pulse Rate: 89 SaO2: 100 Resp Rate: 16 Blood Pressure: 121/80 Temperature: 36.9 C - RESPIRATORY Respiratory Status: Respiratory Rate WNL, Airway Patent, O2 Saturation Stable, Supplemental Oxygen - CARDIOVASCULAR CV Status: Pulse Rate WNL, Blood Pressure Stable - GASTROINTESTINAL GI Status: No Symptoms - PAIN Pain Score: 0 - POST OP HYDRATION Hydration Status: Adequate & Stable
--- NOTE | 2019-01-13 10:52 | PCM.OPNOTE ---
- General Post-Op/Procedure Note Date of Surgery/Procedure: 01/13/19 Operative Procedure(s): Laparoscopic-assisted vaginal hysterectomy and bilateral salpingectomy Findings: Grossly normal-appearing cervix, uterus, bilateral fallopian tubes and bilateral ovaries. Adhesions from the anterior uterus to the anterior abdominal wall in the lower uterine segment and the right side of the uterus. Thin filmy adhesion of the omentum to the left lower quadrant of the abdominal wall. Pre Op Diagnosis: Menorrhagia, dysmenorrhea, menstrual migraines Post-Op Diagnosis: Same Anesthesia Technique: General ET Tube Primary Surgeon: Delvin Morejon Anesthesia Provider: Ebony Martinez Trauma Program Manager: Zion Escoto Trauma Program Manager: Kingsley Nolan Reason Trauma Program Manager Was Necessary: Patient's safety and reduction of morbidity and mortality Role of Trauma Program Manager: Laparoscopic surgical skills and retraction for visualization during surgery Pathology: Uterus, cervix and bilateral fallopian tubes Fluid Replacement, Intraop: 2,000 Output, Urine Amount: 800 EBL in mLs: 300 Complications: None Condition: Good Free Text/Narrative:: The patient was seen in the preoperative holding area and risks, benefits, indications, and alternatives of the procedure were reviewed with the patient and she desired to proceed with a laparoscopic assisted vaginal hysterectomy, bilateral salpingectomy, possible unilateral or bilateral salpingo-oophorectomy , possible total abdominal hysterectomy. Consents were reviewed. The patient was taken back to the OR and given general anesthesia with an endotracheal tube which was placed without difficulty. She was placed in dorsal lithotomy position using Yellofin stirrups. She was prepped and draped in normal sterile fashion. A Hartman catheter was placed without difficulty. Attention was then turned to her umbilicus where a previous laparoscopic scar was visualized. This was injected with 0.5% Marcaine and a 5 mm stab incision was made with a scalpel and a Veress needle was then inserted through the incision. The gas was turned on with an opening pressure of 6 mmHg. Pneumoperitoneum was continued until 15 mmHg pressure. A 5 mm trocar was then inserted under direct visualization through the incision without difficulty. A global view of the abdomen was taken and noted to be overall normal-appearing except for one omental adhesion in the left lower quadrant that did not appear to cause issues with laparoscopic hysterectomy. Attention was then turned to the patient's right lower quadrant where an avascular space approximately chcf between the ASIS and the umbilicus was identified. Local anesthetic was injected and a 5 mm incision was made with a scalpel. A 5 mm trocar was then inserted under direct visualization of the laparoscope. Attention was then turned to the left lower quadrant, where again an avascular portion of the abdominal wall was identified approximately chcf between the ASIS and the umbilicus. Local anesthetic was injected and a scalpel was used to make a 5 mm incision. A 5 mm trocar was inserted under direct visualization with the laparoscope. An atraumatic grasper was then used to remove the filmy omental adhesion from the abdominal wall using traction. The omental side of the adhesion was hemostatic as well as the abdominal side of the adhesion. Attention was then turned to the pelvis where the uterus was visualized and noted be normal in appearance with normal appearing bilateral fallopian tubes and normal-appearing bilateral ovaries. An Enseal vessel sealing device was introduced and was used to transect the left fallopian tube and round ligament. The broad ligament connecting the left fallopian tube was transected from the ovary and underlying tissue. The left round ligament was then transected using the Enseal vessel sealing device. The utero-ovarian ligament was then transected using the Enseal device. The left side of the uterus and broad ligament were then transected using the Enseal device until the level of the uterovesical peritoneal reflection. This was repeated on the patient's right side. The fallopian tube was transected from the underlying tissue using the Enseal device. The utero-ovarian ligament was then transected using Enseal device. Round ligament was transected using Enseal vessel sealing device and the broad ligament was transected to the level of the uterovesical peritoneal reflection. There was some scar tissue noted along the right lower segment of the uterus and abdominal wall that was taken down using the Enseal device. Hemostasis was noted. The pelvis was then inspected for hemostasis at this time and hemostasis was noted. All instruments were removed from the abdomen. Attention was then turned to the patient's peritoneum where a weighted speculum was placed into the vagina and a [place] retractor was used to visualize the cervix. The cervix was grasped with a double-tooth tenaculum. The cervical reflection point was then injected circumferentially with 0.25% lidocaine with epinephrine. The cervix was then circumferentially incised with a scalpel. The bladder was then dissected off the pubovesical cervical fascia anteriorly with Metzenbaum scissors. The same procedure was performed posteriorly and the posterior cul-de-sac was entered sharply without difficulty using Metzenbaum scissors. At this point, an Enseal vessel sealing device was placed over the uterosacral ligaments on the patient's left side. These were transected and ligated with the device. This was repeated on the patient's right side. Hemostasis was assured. The cardinal ligaments were then clamped on both sides , cauterized and ligated using the Enseal device. The uterine artery on the patient's right side side and the remainder of the broad ligament were then serially clamped with the Enseal device, cauterized and ligated. Excellent hemostasis was noted at this time. The cervix and uterus was able to be delivered at this time. The posterior vaginal cuff was closed with running locked sutures of 0 Monocryl. There was noted to be some bleeding from the anterior cuff that was cauterized with the Enseal device. The vaginal cuff was then closed in a horizontal fashion using running locked sutures with 0 Monocryl suture. All instruments were removed from the vagina. Attention was then turned to the abdomen where a laparoscope was inserted and was used to check for hemostasis. Hemostasis was noted at this time. There was noted that there was a moderate amount of blood clot in the pelvis. This was suction irrigated using laparoscopic suction device. The case was complete at this time. The gas was then evacuated from the peritoneum and trocars removed. These were closed using 4-0 Monocryl suture and Dermabond. The case was completed at this time and all instruments were removed. The Hartman catheter was discontinued at this time. The patient was awoken from general anesthesia and taken to the PACU for recovery in stable condition. She will be discharged to home once she is able to meet all postoperative milestones including tolerating small amount of oral intake and liquids, ambulate without difficulty, her pain controlled with oral medications and able to void without difficulty. She will follow-up in the clinic in 2 weeks or earlier as needed. Sponge, lap, needle, and instrument counts were correct x 2.
[2019-01-13] MEDS: fentaNYL 100 MCG/2 ML SDV IVPUSH PRN ×2 (10:53→11:10)
[2019-01-13] MEDS: Acetaminophen/oxyCODONE 325-5 MG Tab PO PRN ×2 (11:45→19:59)
[2019-01-13] MEDS ORDERED: HYDROmorphone 0.5 MG/0.5 ML Syringe ONE ×2 (11:57)
[2019-01-13] MEDS ORDERED: fentaNYL 100 MCG/2 ML SDV IVPUSH STA (12:25)
[2019-01-13] MEDS ORDERED: Ketorolac 30 MG/ML SDV ONE (12:49)
[2019-01-13] MEDS ORDERED: HYDROmorphone 0.5 MG/0.5 ML Syringe IVPUSH ONE ×2 (13:16→15:34)
[2019-01-13] MEDS ORDERED: Ketorolac 15 MG/ML SDV IVPUSH ONE (13:54)
--- NOTE | 2019-01-13 14:33 | PCM48HPAN ---
Post Anesthesia Note - EVALUATION WITHIN 48HRS OF ANESTHETIC Vital Signs in Normal Range: Yes Patient Participated in Evaluation: Yes Respiratory Function Stable: Yes Airway Patent: Yes Cardiovascular Function Stable: Yes Hydration Status Stable: Yes Pain Control Satisfactory: Yes (Improving with pain medcations. ) Nausea and Vomiting Control Satisfactory: Yes Mental Status Recovered: Yes
[2019-01-13] MEDS: oxyCODONE 5 MG Tab PO PRN (17:19)
[2019-01-13] MEDS ORDERED: HYDROmorphone 1 MG/ML Syringe IV PRN (18:24)
[2019-01-13] MEDS: HYDROmorphone 1 MG/ML Syringe IVPUSH PRN ×2 (18:33→22:31)
[2019-01-13] MEDS: Ondansetron 4 MG/2 ML SDV IVPUSH PRN ×2 (18:55→23:01)
[2019-01-13] MEDS: Ketorolac 30 MG/ML SDV IVPUSH SCH (20:57)
[2019-01-13] MEDS ORDERED: HYDROmorphone 1 MG/ML Syringe IVPUSH PRN (22:47)
[2019-01-13] MEDS: diphenhydrAMINE 25 MG Cap PO PRN (23:01)
[2019-01-14] MEDS: Ketorolac 30 MG/ML SDV IVPUSH SCH (02:00)
[2019-01-14] MEDS: Acetaminophen/oxyCODONE 325-5 MG Tab PO PRN ×2 (02:58→10:02)
[2019-01-14] MEDS ORDERED: Ibuprofen 600 MG Tab PO ONE (08:00)
[2019-01-14] MEDS: diphenhydrAMINE 25 MG Cap PO PRN (08:20)
--- NOTE | 2019-01-14 08:35 | PCM.SN ---
- Free Text/Narrative Note: Post Op Note Subjective: Patient reports feeling well overall this morning. Pain minimal and controlled with oral medications and Toradol overnight. Patient had difficulty getting good pain control after her surgery throughout the day and most of the evening last night. She finally was able to get relief after she received Toradol, Urecholine, Percocets 2 tablets and Dilaudid 0.5 mg every to 2 hours. She received her last dose of Dilaudid at approximately 10 PM last evening. She reports this morning that her pain has improved significantly and she is down to a 4/10 and that this is much more manageable for her. Tolerating regular diet. Reports passing flatus. Voiding without difficulty. Ambulating without difficulty. Reports that yesterday afternoon she had minimal milk production but it has increased this morning with pumping. Objective: Vitals Vital Signs - 24 hr 01/13/19 01/13/19 01/13/19 09:08 10:37 10:45 Temperature 36.9 C Temperature [ 36.9 C Temporal] Pulse, 89 Peripheral Pulse, 89 Peripheral [ Right Pulse Oximetry] Respiratory 16 16 16 Rate Blood Pressure 121/80 Blood Pressure 121/80 [Right Upper Arm] O2 Sat by Pulse 97 100 100 Oximetry O2 Sat by Pulse Oximetry [ Nasal Cannula] O2 Sat by Pulse Oximetry [Room Air] 01/13/19 01/13/19 01/13/19 10:50 11:00 11:05 Temperature Temperature [ 36.9 C Temporal] Pulse, Peripheral Pulse, 81 78 Peripheral [ Right Pulse Oximetry] Respiratory 14 15 Rate Blood Pressure Blood Pressure 115/74 118/77 [Right Upper Arm] O2 Sat by Pulse 100 100 Oximetry O2 Sat by Pulse 100 Oximetry [ Nasal Cannula] O2 Sat by Pulse Oximetry [Room Air] 01/13/19 01/13/19 01/13/19 11:20 11:21 11:35 Temperature Temperature [ 37.3 C 37.1 C Temporal] Pulse, Peripheral Pulse, 79 76 Peripheral [ Right Pulse Oximetry] Respiratory 14 16 Rate Blood Pressure Blood Pressure 108/83 115/74 [Right Upper Arm] O2 Sat by Pulse 100 97 Oximetry O2 Sat by Pulse 100 Oximetry [ Nasal Cannula] O2 Sat by Pulse Oximetry [Room Air] 01/13/19 01/13/19 01/13/19 11:38 12:10 12:40 Temperature Temperature [ 37.1 C 37.1 C Temporal] Pulse, Peripheral Pulse, 76 76 76 Peripheral [ Right Pulse Oximetry] Respiratory 16 16 16 Rate Blood Pressure Blood Pressure 111/73 119/68 109/76 [Right Upper Arm] O2 Sat by Pulse 97 97 97 Oximetry O2 Sat by Pulse Oximetry [ Nasal Cannula] O2 Sat by Pulse Oximetry [Room Air] 01/13/19 01/13/19 01/13/19 13:10 13:30 13:35 Temperature Temperature [ 37.1 C Temporal] Pulse, Peripheral Pulse, 80 74 Peripheral [ Right Pulse Oximetry] Respiratory 16 16 Rate Blood Pressure Blood Pressure 117/68 120/68 [Right Upper Arm] O2 Sat by Pulse 97 97 Oximetry O2 Sat by Pulse 87 L Oximetry [ Nasal Cannula] O2 Sat by Pulse Oximetry [Room Air] 01/13/19 01/13/19 01/13/19 14:00 14:45 15:06 Temperature Temperature [ 37.1 C Temporal] Pulse, Peripheral Pulse, 74 88 Peripheral [ Right Pulse Oximetry] Respiratory 16 18 Rate Blood Pressure Blood Pressure 121/56 L 98/77 [Right Upper Arm] O2 Sat by Pulse 97 95 Oximetry O2 Sat by Pulse Oximetry [ Nasal Cannula] O2 Sat by Pulse 97 87 L Oximetry [Room Air] 01/13/19 01/13/19 01/13/19 15:15 15:20 16:00 Temperature Temperature [ 37.1 C 36.6 C Temporal] Pulse, Peripheral Pulse, 78 62 Peripheral [ Right Pulse Oximetry] Respiratory 18 16 Rate Blood Pressure Blood Pressure 102/66 104/68 [Right Upper Arm] O2 Sat by Pulse 95 91 L Oximetry O2 Sat by Pulse 88 L Oximetry [ Nasal Cannula] O2 Sat by Pulse Oximetry [Room Air] 01/13/19 01/14/19 20:54 00:28 Temperature 37.0 C Temperature [ Temporal] Pulse, 81 78 Peripheral Pulse, Peripheral [ Right Pulse Oximetry] Respiratory 14 14 Rate Blood Pressure 131/66 105/60 Blood Pressure [Right Upper Arm] O2 Sat by Pulse 97 97 Oximetry O2 Sat by Pulse Oximetry [ Nasal Cannula] O2 Sat by Pulse Oximetry [Room Air] I/O: Intake & Output 01/12/19 01/13/19 01/14/19 01/15/19 06:59 06:59 06:59 06:59 Intake Total 3900 Output Total 3200 Balance 700 Gen: No acute distress, alert and oriented Lungs: Clear to auscultation bilaterally Heart: Regular rate and rhythm Abdomen: Soft, minimal appropriate tenderness, nondistended, bowel sounds positive Incisions: Healing well, no bleeding or discharge, no erythema present, skin glue covering incisions Laboratory Tests 01/13/19 01/13/19 01/13/19 Range/Units 06:55 06:55 07:13 WBC (3.98-10.04) K/mm3 RBC (3.98-5.22) M/mm3 Hgb (11.2-15.7) gm/L Hct (34.1-44.9) % MCV (79.4-94.8) fl MCH (25.6-32.2) pg MCHC (32.2-35.5) g/dl RDW Std Deviation (36.4-46.3) fL Plt Count (182-369) K/mm3 MPV (9.4-12.3) fl Neut % (Auto) (34.0-71.1) % Lymph % (Auto) (19.3-51.7) % Luce % (Auto) (4.7-12.5) % Eos % (Auto) (0.7-5.8) Baso % (Auto) (0.1-1.2) % Neut # (Auto) (1.56-6.13) K/mm3 Lymph # (Auto) (1.18-3.74) K/mm3 Luce # (Auto) (0.24-0.36) K/mm3 Eos # (Auto) (0.04-0.36) K/mm3 Baso # (Auto) (0.01-0.08) K/mm3 Manual Slide Review Sodium (136-145) mEq/L Potassium (3.5-5.1) mEq/L Chloride (98-107) mEq/L Carbon Dioxide (21-32) mEq/L Anion Gap (5-15) BUN (7-18) mg/dL Creatinine (0.55-1.02) mg/dL Est Cr Clr Drug Dosing mL/min Estimated GFR (MDRD) (>60) mL/min BUN/Creatinine Ratio (14-18) Glucose (74-106) mg/dL Calcium (8.5-10.1) mg/dL Total Bilirubin (0.2-1.0) mg/dL AST (15-37) U/L ALT (14-59) U/L Alkaline Phosphatase (46-116) U/L Total Protein (6.4-8.2) g/dl Albumin (3.4-5.0) g/dl Globulin gm/dL Albumin/Globulin Ratio (1-2) Urine Color Yellow (Yellow) Urine Appearance Clear (Clear) Urine pH 6.0 (5.0-8.0) Ur Specific [place] 1.025 (1.005-1.030) Urine Protein Negative (Negative) Urine Glucose (UA) Negative (Negative) Urine Ketones Negative (Negative) Urine Occult Blood Negative (Negative) Urine Nitrite Negative (Negative) Urine Bilirubin Negative (Negative) Urine Urobilinogen 0.2 (0.2-1.0) Ur Leukocyte Esterase Negative (Negative) Urine RBC 0-5 (0-5) /hpf Urine WBC 0-5 (0-5) /hpf Ur Epithelial Cells 0-5 (0-5) /hpf Urine Bacteria Not seen (FEW) /hpf Urine Mucus Not seen (FEW) /hpf Urine HCG, Qual Negative (NEGATIVE) Blood Type B NEGATIVE Gel Antibody Screen Negative 01/13/19 01/13/19 01/14/19 Range/Units 14:51 14:51 06:13 WBC 10.17 H 8.06 (3.98-10.04) K/mm3 RBC 3.56 L 3.24 L (3.98-5.22) M/mm3 Hgb 10.6 L 9.6 L (11.2-15.7) gm/L Hct 32.1 L 29.9 L (34.1-44.9) % MCV 90.2 92.3 (79.4-94.8) fl MCH 29.8 29.6 (25.6-32.2) pg MCHC 33.0 32.1 L (32.2-35.5) g/dl RDW Std Deviation 36.9 38.3 (36.4-46.3) fL Plt Count 220 232 (182-369) K/mm3 MPV 10.2 10.4 (9.4-12.3) fl Neut % (Auto) 91.7 H 66.7 (34.0-71.1) % Lymph % (Auto) 6.5 L 16.9 L (19.3-51.7) % Luce % (Auto) 1.5 L 10.9 (4.7-12.5) % Eos % (Auto) 0.1 L 5.2 (0.7-5.8) Baso % (Auto) 0.1 0.2 (0.1-1.2) % Neut # (Auto) 9.33 H 5.37 (1.56-6.13) K/mm3 Lymph # (Auto) 0.66 L 1.36 (1.18-3.74) K/mm3 Luce # (Auto) 0.15 L 0.88 H (0.24-0.36) K/mm3 Eos # (Auto) 0.01 L 0.42 H (0.04-0.36) K/mm3 Baso # (Auto) 0.01 0.02 (0.01-0.08) K/mm3 Manual Slide Review Abnormal smear Sodium 138 (136-145) mEq/L Potassium 4.3 (3.5-5.1) mEq/L Chloride 104 (98-107) mEq/L Carbon Dioxide 26 (21-32) mEq/L Anion Gap 12.3 (5-15) BUN 8 (7-18) mg/dL Creatinine 0.7 (0.55-1.02) mg/dL Est Cr Clr Drug Dosing 103.32 mL/min Estimated GFR (MDRD) > 60 (>60) mL/min BUN/Creatinine Ratio 11.4 L (14-18) Glucose 151 H (74-106) mg/dL Calcium 8.7 (8.5-10.1) mg/dL Total Bilirubin 0.2 (0.2-1.0) mg/dL AST 75 H (15-37) U/L ALT 161 H (14-59) U/L Alkaline Phosphatase 91 (46-116) U/L Total Protein 6.7 (6.4-8.2) g/dl Albumin 3.4 (3.4-5.0) g/dl Globulin 3.3 gm/dL Albumin/Globulin Ratio 1.0 (1-2) Urine Color (Yellow) Urine Appearance (Clear) Urine pH (5.0-8.0) Ur Specific [place] (1.005-1.030) Urine Protein (Negative) Urine Glucose (UA) (Negative) Urine Ketones (Negative) Urine Occult Blood (Negative) Urine Nitrite (Negative) Urine Bilirubin (Negative) Urine Urobilinogen (0.2-1.0) Ur Leukocyte Esterase (Negative) Urine RBC (0-5) /hpf Urine WBC (0-5) /hpf Ur Epithelial Cells (0-5) /hpf Urine Bacteria (FEW) /hpf Urine Mucus (FEW) /hpf Urine HCG, Qual (NEGATIVE) Blood Type Gel Antibody Screen 01/14/19 Range/Units 06:13 WBC (3.98-10.04) K/mm3 RBC (3.98-5.22) M/mm3 Hgb (11.2-15.7) gm/L Hct (34.1-44.9) % MCV (79.4-94.8) fl MCH (25.6-32.2) pg MCHC (32.2-35.5) g/dl RDW Std Deviation (36.4-46.3) fL Plt Count (182-369) K/mm3 MPV (9.4-12.3) fl Neut % (Auto) (34.0-71.1) % Lymph % (Auto) (19.3-51.7) % Luce % (Auto) (4.7-12.5) % Eos % (Auto) (0.7-5.8) Baso % (Auto) (0.1-1.2) % Neut # (Auto) (1.56-6.13) K/mm3 Lymph # (Auto) (1.18-3.74) K/mm3 Luce # (Auto) (0.24-0.36) K/mm3 Eos # (Auto) (0.04-0.36) K/mm3 Baso # (Auto) (0.01-0.08) K/mm3 Manual Slide Review Sodium 138 (136-145) mEq/L Potassium 4.2 (3.5-5.1) mEq/L Chloride 103 (98-107) mEq/L Carbon Dioxide 32 (21-32) mEq/L Anion Gap 7.2 (5-15) BUN 10 (7-18) mg/dL Creatinine 0.7 (0.55-1.02) mg/dL Est Cr Clr Drug Dosing 103.32 mL/min Estimated GFR (MDRD) > 60 (>60) mL/min BUN/Creatinine Ratio 14.3 (14-18) Glucose 120 H (74-106) mg/dL Calcium 8.7 (8.5-10.1) mg/dL Total Bilirubin (0.2-1.0) mg/dL AST (15-37) U/L ALT (14-59) U/L Alkaline Phosphatase (46-116) U/L Total Protein (6.4-8.2) g/dl Albumin (3.4-5.0) g/dl Globulin gm/dL Albumin/Globulin Ratio (1-2) Urine Color (Yellow) Urine Appearance (Clear) Urine pH (5.0-8.0) Ur Specific [place] (1.005-1.030) Urine Protein (Negative) Urine Glucose (UA) (Negative) Urine Ketones (Negative) Urine Occult Blood (Negative) Urine Nitrite (Negative) Urine Bilirubin (Negative) Urine Urobilinogen (0.2-1.0) Ur Leukocyte Esterase (Negative) Urine RBC (0-5) /hpf Urine WBC (0-5) /hpf Ur Epithelial Cells (0-5) /hpf Urine Bacteria (FEW) /hpf Urine Mucus (FEW) /hpf Urine HCG, Qual (NEGATIVE) Blood Type Gel Antibody Screen Assesment/Plan: 28-year-old with postoperative pain status post laparoscopic-assisted vaginal hysterectomy and bilateral salpingectomy POD #1 Doing well No concerns at this time Patient with slight decrease in her hemoglobin from yesterday afternoon. Suspect that this was due to equilibration of the blood count after surgery. Patient does not have any evidence of continued bleeding at this time and vitals have been stable. Routine post op care Monitor vitals Discontinue Toradol and give ibuprofen 600 mg by mouth this morning. Continue Urecholine for bladder spasms Anticipate discharge home later this morning if her pain is able to be well controlled with use of Percocet and ibuprofen Delvin Morejon MD 8:33 AM 01/14/2019
[2019-01-14 11:07] VITALS: BP 117/72
[2019-01-14] MEDS: oxyCODONE 5 MG Tab PO PRN (11:44)
--- NOTE | 2019-01-14 12:56 | PCM.DCSUM1 ---
Discharge Summary - Hospital Course Free Text/Narrative:: The patient was seen in the preoperative holding area and risks, benefits, indications, and alternatives of the procedure were reviewed with the patient and she desired to proceed with a laparoscopic assisted vaginal hysterectomy, bilateral salpingectomy, possible unilateral or bilateral salpingo-oophorectomy , possible total abdominal hysterectomy. Consents were reviewed. The patient was taken back to the OR and given general anesthesia with an endotracheal tube which was placed without difficulty. She was placed in dorsal lithotomy position using Yellofin stirrups. She was prepped and draped in normal sterile fashion. A Hartman catheter was placed without difficulty. Attention was then turned to her umbilicus where a previous laparoscopic scar was visualized. This was injected with 0.5% Marcaine and a 5 mm stab incision was made with a scalpel and a Veress needle was then inserted through the incision. The gas was turned on with an opening pressure of 6 mmHg. Pneumoperitoneum was continued until 15 mmHg pressure. A 5 mm trocar was then inserted under direct visualization through the incision without difficulty. A global view of the abdomen was taken and noted to be overall normal-appearing except for one omental adhesion in the left lower quadrant that did not appear to cause issues with laparoscopic hysterectomy. Attention was then turned to the patient's right lower quadrant where an avascular space approximately senior care between the ASIS and the umbilicus was identified. Local anesthetic was injected and a 5 mm incision was made with a scalpel. A 5 mm trocar was then inserted under direct visualization of the laparoscope. Attention was then turned to the left lower quadrant, where again an avascular portion of the abdominal wall was identified approximately senior care between the ASIS and the umbilicus. Local anesthetic was injected and a scalpel was used to make a 5 mm incision. A 5 mm trocar was inserted under direct visualization with the laparoscope. An atraumatic grasper was then used to remove the filmy omental adhesion from the abdominal wall using traction. The omental side of the adhesion was hemostatic as well as the abdominal side of the adhesion. Attention was then turned to the pelvis where the uterus was visualized and noted be normal in appearance with normal appearing bilateral fallopian tubes and normal-appearing bilateral ovaries. An Enseal vessel sealing device was introduced and was used to transect the left fallopian tube and round ligament. The broad ligament connecting the left fallopian tube was transected from the ovary and underlying tissue. The left round ligament was then transected using the Enseal vessel sealing device. The utero-ovarian ligament was then transected using the Enseal device. The left side of the uterus and broad ligament were then transected using the Enseal device until the level of the uterovesical peritoneal reflection. This was repeated on the patient's right side. The fallopian tube was transected from the underlying tissue using the Enseal device. The utero-ovarian ligament was then transected using Enseal device. Round ligament was transected using Enseal vessel sealing device and the broad ligament was transected to the level of the uterovesical peritoneal reflection. There was some scar tissue noted along the right lower segment of the uterus and abdominal wall that was taken down using the Enseal device. Hemostasis was noted. The pelvis was then inspected for hemostasis at this time and hemostasis was noted. All instruments were removed from the abdomen. Attention was then turned to the patient's peritoneum where a weighted speculum was placed into the vagina and a [place] retractor was used to visualize the cervix. The cervix was grasped with a double-tooth tenaculum. The cervical reflection point was then injected circumferentially with 0.25% lidocaine with epinephrine. The cervix was then circumferentially incised with a scalpel. The bladder was then dissected off the pubovesical cervical fascia anteriorly with Metzenbaum scissors. The same procedure was performed posteriorly and the posterior cul-de-sac was entered sharply without difficulty using Metzenbaum scissors. At this point, an Enseal vessel sealing device was placed over the uterosacral ligaments on the patient's left side. These were transected and ligated with the device. This was repeated on the patient's right side. Hemostasis was assured. The cardinal ligaments were then clamped on both sides , cauterized and ligated using the Enseal device. The uterine artery on the patient's right side side and the remainder of the broad ligament were then serially clamped with the Enseal device, cauterized and ligated. Excellent hemostasis was noted at this time. The cervix and uterus was able to be delivered at this time. The posterior vaginal cuff was closed with running locked sutures of 0 Monocryl. There was noted to be some bleeding from the anterior cuff that was cauterized with the Enseal device. The vaginal cuff was then closed in a horizontal fashion using running locked sutures with 0 Monocryl suture. All instruments were removed from the vagina. Attention was then turned to the abdomen where a laparoscope was inserted and was used to check for hemostasis. Hemostasis was noted at this time. There was noted that there was a moderate amount of blood clot in the pelvis. This was suction irrigated using laparoscopic suction device. The case was complete at this time. The gas was then evacuated from the peritoneum and trocars removed. These were closed using 4-0 Monocryl suture and Dermabond. The case was completed at this time and all instruments were removed. The Hartman catheter was discontinued at this time. The patient was awoken from general anesthesia and taken to the PACU for recovery in stable condition. She will be discharged to home once she is able to meet all postoperative milestones including tolerating small amount of oral intake and liquids, ambulate without difficulty, her pain controlled with oral medications and able to void without difficulty. She will follow-up in the clinic in 2 weeks or earlier as needed. Sponge, lap, needle, and instrument counts were correct x 2. HPI Initial Comments: The patient was seen in the preoperative holding area and risks, benefits, indications, and alternatives of the procedure were reviewed with the patient and she desired to proceed with a laparoscopic assisted vaginal hysterectomy, bilateral salpingectomy, possible unilateral or bilateral salpingo-oophorectomy , possible total abdominal hysterectomy. Consents were reviewed. The patient was taken back to the OR and given general anesthesia with an endotracheal tube which was placed without difficulty. She was placed in dorsal lithotomy position using Yellofin stirrups. She was prepped and draped in normal sterile fashion. A Hartman catheter was placed without difficulty. Attention was then turned to her umbilicus where a previous laparoscopic scar was visualized. This was injected with 0.5% Marcaine and a 5 mm stab incision was made with a scalpel and a Veress needle was then inserted through the incision. The gas was turned on with an opening pressure of 6 mmHg. Pneumoperitoneum was continued until 15 mmHg pressure. A 5 mm trocar was then inserted under direct visualization through the incision without difficulty. A global view of the abdomen was taken and noted to be overall normal-appearing except for one omental adhesion in the left lower quadrant that did not appear to cause issues with laparoscopic hysterectomy. Attention was then turned to the patient's right lower quadrant where an avascular space approximately senior care between the ASIS and the umbilicus was identified. Local anesthetic was injected and a 5 mm incision was made with a scalpel. A 5 mm trocar was then inserted under direct visualization of the laparoscope. Attention was then turned to the left lower quadrant, where again an avascular portion of the abdominal wall was identified approximately senior care between the ASIS and the umbilicus. Local anesthetic was injected and a scalpel was used to make a 5 mm incision. A 5 mm trocar was inserted under direct visualization with the laparoscope. An atraumatic grasper was then used to remove the filmy omental adhesion from the abdominal wall using traction. The omental side of the adhesion was hemostatic as well as the abdominal side of the adhesion. Attention was then turned to the pelvis where the uterus was visualized and noted be normal in appearance with normal appearing bilateral fallopian tubes and normal-appearing bilateral ovaries. An Enseal vessel sealing device was introduced and was used to transect the left fallopian tube and round ligament. The broad ligament connecting the left fallopian tube was transected from the ovary and underlying tissue. The left round ligament was then transected using the Enseal vessel sealing device. The utero-ovarian ligament was then transected using the Enseal device. The left side of the uterus and broad ligament were then transected using the Enseal device until the level of the uterovesical peritoneal reflection. This was repeated on the patient's right side. The fallopian tube was transected from the underlying tissue using the Enseal device. The utero-ovarian ligament was then transected using Enseal device. Round ligament was transected using Enseal vessel sealing device and the broad ligament was transected to the level of the uterovesical peritoneal reflection. There was some scar tissue noted along the right lower segment of the uterus and abdominal wall that was taken down using the Enseal device. Hemostasis was noted. The pelvis was then inspected for hemostasis at this time and hemostasis was noted. All instruments were removed from the abdomen. Attention was then turned to the patient's peritoneum where a weighted speculum was placed into the vagina and a [place] retractor was used to visualize the cervix. The cervix was grasped with a double-tooth tenaculum. The cervical reflection point was then injected circumferentially with 0.25% lidocaine with epinephrine. The cervix was then circumferentially incised with a scalpel. The bladder was then dissected off the pubovesical cervical fascia anteriorly with Metzenbaum scissors. The same procedure was performed posteriorly and the posterior cul-de-sac was entered sharply without difficulty using Metzenbaum scissors. At this point, an Enseal vessel sealing device was placed over the uterosacral ligaments on the patient's left side. These were transected and ligated with the device. This was repeated on the patient's right side. Hemostasis was assured. The cardinal ligaments were then clamped on both sides , cauterized and ligated using the Enseal device. The uterine artery on the patient's right side side and the remainder of the broad ligament were then serially clamped with the Enseal device, cauterized and ligated. Excellent hemostasis was noted at this time. The cervix and uterus was able to be delivered at this time. The posterior vaginal cuff was closed with running locked sutures of 0 Monocryl. There was noted to be some bleeding from the anterior cuff that was cauterized with the Enseal device. The vaginal cuff was then closed in a horizontal fashion using running locked sutures with 0 Monocryl suture. All instruments were removed from the vagina. Attention was then turned to the abdomen where a laparoscope was inserted and was used to check for hemostasis. Hemostasis was noted at this time. There was noted that there was a moderate amount of blood clot in the pelvis. This was suction irrigated using laparoscopic suction device. The case was complete at this time. The gas was then evacuated from the peritoneum and trocars removed. These were closed using 4-0 Monocryl suture and Dermabond. The case was completed at this time and all instruments were removed. The Hartman catheter was discontinued at this time. The patient was awoken from general anesthesia and taken to the PACU for recovery in stable condition. She will be discharged to home once she is able to meet all postoperative milestones including tolerating small amount of oral intake and liquids, ambulate without difficulty, her pain controlled with oral medications and able to void without difficulty. She will follow-up in the clinic in 2 weeks or earlier as needed. Sponge, lap, needle, and instrument counts were correct x 2. Brief History: The patient was seen in the preoperative holding area and risks, benefits, indications, and alternatives of the procedure were reviewed with the patient and she desired to proceed with a laparoscopic assisted vaginal hysterectomy, bilateral salpingectomy, possible unilateral or bilateral salpingo -oophorectomy, possible total abdominal hysterectomy. Consents were reviewed. The patient was taken back to the OR and given general anesthesia with an endotracheal tube which was placed without difficulty. She was placed in dorsal lithotomy position using Yellofin stirrups. She was prepped and draped in normal sterile fashion. A Hartman catheter was placed without difficulty. Attention was then turned to her umbilicus where a previous laparoscopic scar was visualized. This was injected with 0.5% Marcaine and a 5 mm stab incision was made with a scalpel and a Veress needle was then inserted through the incision. The gas was turned on with an opening pressure of 6 mmHg. Pneumoperitoneum was continued until 15 mmHg pressure. A 5 mm trocar was then inserted under direct visualization through the incision without difficulty. A global view of the abdomen was taken and noted to be overall normal-appearing except for one omental adhesion in the left lower quadrant that did not appear to cause issues with laparoscopic hysterectomy. Attention was then turned to the patient's right lower quadrant where an avascular space approximately senior care between the ASIS and the umbilicus was identified. Local anesthetic was injected and a 5 mm incision was made with a scalpel. A 5 mm trocar was then inserted under direct visualization of the laparoscope. Attention was then turned to the left lower quadrant, where again an avascular portion of the abdominal wall was identified approximately senior care between the ASIS and the umbilicus. Local anesthetic was injected and a scalpel was used to make a 5 mm incision. A 5 mm trocar was inserted under direct visualization with the laparoscope. An atraumatic grasper was then used to remove the filmy omental adhesion from the abdominal wall using traction. The omental side of the adhesion was hemostatic as well as the abdominal side of the adhesion. Attention was then turned to the pelvis where the uterus was visualized and noted be normal in appearance with normal appearing bilateral fallopian tubes and normal-appearing bilateral ovaries. An Enseal vessel sealing device was introduced and was used to transect the left fallopian tube and round ligament. The broad ligament connecting the left fallopian tube was transected from the ovary and underlying tissue. The left round ligament was then transected using the Enseal vessel sealing device. The utero-ovarian ligament was then transected using the Enseal device. The left side of the uterus and broad ligament were then transected using the Enseal device until the level of the uterovesical peritoneal reflection. This was repeated on the patient's right side. The fallopian tube was transected from the underlying tissue using the Enseal device. The utero-ovarian ligament was then transected using Enseal device. Round ligament was transected using Enseal vessel sealing device and the broad ligament was transected to the level of the uterovesical peritoneal reflection. There was some scar tissue noted along the right lower segment of the uterus and abdominal wall that was taken down using the Enseal device. Hemostasis was noted. The pelvis was then inspected for hemostasis at this time and hemostasis was noted. All instruments were removed from the abdomen. Attention was then turned to the patient's peritoneum where a weighted speculum was placed into the vagina and a [place] retractor was used to visualize the cervix. The cervix was grasped with a double-tooth tenaculum. The cervical reflection point was then injected circumferentially with 0.25% lidocaine with epinephrine. The cervix was then circumferentially incised with a scalpel. The bladder was then dissected off the pubovesical cervical fascia anteriorly with Metzenbaum scissors. The same procedure was performed posteriorly and the posterior cul-de-sac was entered sharply without difficulty using Metzenbaum scissors. At this point, an Enseal vessel sealing device was placed over the uterosacral ligaments on the patient's left side. These were transected and ligated with the device. This was repeated on the patient's right side. Hemostasis was assured. The cardinal ligaments were then clamped on both sides , cauterized and ligated using the Enseal device. The uterine artery on the patient's right side side and the remainder of the broad ligament were then serially clamped with the Enseal device, cauterized and ligated. Excellent hemostasis was noted at this time. The cervix and uterus was able to be delivered at this time. The posterior vaginal cuff was closed with running locked sutures of 0 Monocryl. There was noted to be some bleeding from the anterior cuff that was cauterized with the Enseal device. The vaginal cuff was then closed in a horizontal fashion using running locked sutures with 0 Monocryl suture. All instruments were removed from the vagina. Attention was then turned to the abdomen where a laparoscope was inserted and was used to check for hemostasis. Hemostasis was noted at this time. There was noted that there was a moderate amount of blood clot in the pelvis. This was suction irrigated using laparoscopic suction device. The case was complete at this time. The gas was then evacuated from the peritoneum and trocars removed. These were closed using 4-0 Monocryl suture and Dermabond. The case was completed at this time and all instruments were removed. The Hartman catheter was discontinued at this time. The patient was awoken from general anesthesia and taken to the PACU for recovery in stable condition. She will be discharged to home once she is able to meet all postoperative milestones including tolerating small amount of oral intake and liquids, ambulate without difficulty, her pain controlled with oral medications and able to void without difficulty. She will follow-up in the clinic in 2 weeks or earlier as needed. Sponge, lap, needle, and instrument counts were correct x 2. Diagnosis: Stroke: No - Discharge Data Discharge Date: 01/14/19 Discharge Disposition: Home, Self-Care 01 Condition: Good - Discharge Diagnosis/Problem(s) (1) S/P laparoscopic hysterectomy SNOMED Code(s): 381620547, 712825556 ICD Code: Z90.710 - ACQUIRED ABSENCE OF BOTH CERVIX AND UTERUS Status: Acute (2) Dysmenorrhea SNOMED Code(s): 427767371 ICD Code: N94.6 - DYSMENORRHEA, UNSPECIFIED Status: Acute (3) Menorrhagia SNOMED Code(s): 215578867 ICD Code: N92.0 - EXCESSIVE AND FREQUENT MENSTRUATION WITH REGULAR CYCLE Status: Acute - Patient Summary/Data Operative Procedure(s) Performed: Laparoscopic-assisted vaginal hysterectomy and bilateral salpingectomy Complications: Pain control issues postoperatively Consults: None Hospital Course: Patient arrived at the hospital for scheduled upper scopic assisted vaginal hysterectomy with bilateral salpingectomy. She was taken back to the OR and had an uncomplicated procedure. Please see the operative report for full details. After the procedure she was overall doing well and was tolerating regular diet and was able to void without difficulty. However, she was having significant amount of abdominal and pelvic pain with cramping. She had a CBC that was done that showed a hemoglobin of 10.6 and a creatinine of 0.7. Her white blood cell count was only mildly elevated at 10.17. The only other abnormalities on her labs were elevated glucose at 151. Patient was kept for observation to try to work on pain control after the procedure. Patient had been given Toradol 15 mg IV in the operating room and given an additional 15 mg IV in the PACU. She was transferred to the floor and was continued on Percocet , IV Dilaudid and IV Toradol. In the evening of postop day #0 her pain continued to be present and Urecholine 10 mg 3 times a day was added to her pain regimen. After these medications her pain was able to be again to be controlled and she was able to sleep throughout the night. In the morning of postoperative day #1 her pain continued to be controlled with oral medications and Toradol overnight. Repeat labs in the morning of postoperative day #1 showed a hemoglobin of 9.6 and this was felt to be appropriate drop in her blood count for her with stabilization of the hemoglobin following the procedure and delusional effect from fluids. Her creatinine continued to be normal at 0.7. Other labs were within normal limits except for glucose which continued to be elevated at 120. She was transitioned to ibuprofen in the morning of postoperative day #1. She was tolerating a regular diet without any difficulties. She is passing flatus. She was voiding without difficulty. She denied any fevers or chills. She continued to have good milk production throughout the night. After she was transitioned to ibuprofen and she did have some increase in the amount of pain that she was having but felt that it would be manageable at home and desired discharge in the late morning of postoperative day #1. She'll follow-up in 2 weeks or earlier as needed for postoperative visit. - Patient Instructions Diet: Regular Diet as Tolerated Activity: Apply Ice, As Tolerated, No Lifting Over 25 Pounds Driving: May Drive Today Showering/Bathing: May Shower Wound/Incision Care: Keep Operative Site/Wound Site Clean and Dry Notify Provider of: Fever, Increased Pain, Swelling and Redness, Drainage, Nausea and/or Vomiting - Discharge Plan *PRESCRIPTION DRUG MONITORING PROGRAM REVIEWED*: Yes *COPY OF PRESCRIPTION DRUG MONITORING REPORT IN PATIENT NATALIYA: Yes Prescriptions/Med Rec: Acetaminophen/oxyCODONE [Percocet 325-5 MG] 1 - 2 each PO Q6H PRN #30 tab PRN Reason: Pain Bethanechol Chloride [Urecholine] 10 mg PO TID PRN #15 tablet PRN Reason: Bladder spasms Ibuprofen 400 mg PO Q6H PRN #60 tablet PRN Reason: Pain Ondansetron [Zofran ODT] 4 mg PO Q8H PRN #30 tab.dis PRN Reason: Nausea/Vomiting oxyCODONE 5 mg PO Q4H PRN #20 tab PRN Reason: Breakthrough pain Home Medications: Home Meds PNV95/Ferrous Fumarate/FA [ Tablet] 1 tab PO DAILY 11/14/18 [History] Butalb/Acetaminophen/Caffeine [Eofgpg-Ffaqlubd-Ksvr 50-325-40] 1 - 2 tab PO Q6H PRN 01/12/19 [History] Cetirizine HCl [Zyrtec] 10 mg PO DAILY PRN 01/12/19 [History] Fluticasone Propionate [Flonase] 1 dose NASBOTH DAILY PRN 01/12/19 [History] Loratadine [Claritin] 10 mg PO DAILY PRN 01/12/19 [History] Ondansetron [Zofran] 4 mg PO Q4H PRN 01/12/19 [History] Promethazine [Phenergan] 12.5 mg PO Q6H PRN 01/12/19 [History] Triamcinolone Acetonide [Kenalog 0.1% Lotion] 1 dose TOP TID PRN 01/12/19 [ History] diphenhydrAMINE [Benadryl] 25 mg PO Q6H PRN 01/12/19 [History] Acetaminophen/oxyCODONE [Percocet 325-5 MG] 1 - 2 each PO Q6H PRN #30 tab [Rx] Ibuprofen 400 mg PO Q6H PRN #60 tablet 01/13/19 [Rx] Ondansetron [Zofran ODT] 4 mg PO Q8H PRN #30 tab.dis 01/13/19 [Rx] Bethanechol Chloride [Urecholine] 10 mg PO TID PRN #15 tablet 01/14/19 [Rx] oxyCODONE 5 mg PO Q4H PRN #20 tab 01/14/19 [Rx] Patient Handouts: Laparoscopically Assisted Vaginal Hysterectomy, Care After Referrals: Delvin Morejon MD [Physician] - 01/27/19 1:30 pm (Please follow-up with Dr. Morejon on January 27 at 1:30 pm or earlier if needed.) - Discharge Summary/Plan Comment DC Time >30 min.: No - Patient Data Vitals - Most Recent: Last Vital Signs Temp 36.7 C 01/14/19 08:27 Pulse 62 01/14/19 08:27 Resp 14 01/14/19 08:27 BP 117/72 01/14/19 08:27 Pulse Ox 95 01/14/19 08:27 Weight - Most Recent: 83.915 kg I&O - Last 24 hours: Intake & Output 01/13/19 01/14/19 01/14/19 22:59 06:59 14:59 Intake Total 1500 Balance 1500 Lab Results - Last 24 hrs: Laboratory Results - last 24 hr 01/13/19 01/13/19 01/14/19 Range/Units 14:51 14:51 06:13 WBC 10.17 H 8.06 (3.98-10.04) K/mm3 RBC 3.56 L 3.24 L (3.98-5.22) M/mm3 Hgb 10.6 L 9.6 L (11.2-15.7) gm/L Hct 32.1 L 29.9 L (34.1-44.9) % MCV 90.2 92.3 (79.4-94.8) fl MCH 29.8 29.6 (25.6-32.2) pg MCHC 33.0 32.1 L (32.2-35.5) g/dl RDW Std Deviation 36.9 38.3 (36.4-46.3) fL Plt Count 220 232 (182-369) K/mm3 MPV 10.2 10.4 (9.4-12.3) fl Neut % (Auto) 91.7 H 66.7 (34.0-71.1) % Lymph % (Auto) 6.5 L 16.9 L (19.3-51.7) % [place] % (Auto) 1.5 L 10.9 (4.7-12.5) % Eos % (Auto) 0.1 L 5.2 (0.7-5.8) Baso % (Auto) 0.1 0.2 (0.1-1.2) % Neut # (Auto) 9.33 H 5.37 (1.56-6.13) K/mm3 Lymph # (Auto) 0.66 L 1.36 (1.18-3.74) K/mm3 [place] # (Auto) 0.15 L 0.88 H (0.24-0.36) K/mm3 Eos # (Auto) 0.01 L 0.42 H (0.04-0.36) K/mm3 Baso # (Auto) 0.01 0.02 (0.01-0.08) K/mm3 Manual Slide Review Abnormal smear Sodium 138 (136-145) mEq/L Potassium 4.3 (3.5-5.1) mEq/L Chloride 104 (98-107) mEq/L Carbon Dioxide 26 (21-32) mEq/L Anion Gap 12.3 (5-15) BUN 8 (7-18) mg/dL Creatinine 0.7 (0.55-1.02) mg/dL Est Cr Clr Drug Dosing 103.32 mL/min Estimated GFR (MDRD) > 60 (>60) mL/min BUN/Creatinine Ratio 11.4 L (14-18) Glucose 151 H (74-106) mg/dL Calcium 8.7 (8.5-10.1) mg/dL Total Bilirubin 0.2 (0.2-1.0) mg/dL AST 75 H (15-37) U/L ALT 161 H (14-59) U/L Alkaline Phosphatase 91 (46-116) U/L Total Protein 6.7 (6.4-8.2) g/dl Albumin 3.4 (3.4-5.0) g/dl Globulin 3.3 gm/dL Albumin/Globulin Ratio 1.0 (1-2) 01/14/19 Range/Units 06:13 WBC (3.98-10.04) K/mm3 RBC (3.98-5.22) M/mm3 Hgb (11.2-15.7) gm/L Hct (34.1-44.9) % MCV (79.4-94.8) fl MCH (25.6-32.2) pg MCHC (32.2-35.5) g/dl RDW Std Deviation (36.4-46.3) fL Plt Count (182-369) K/mm3 MPV (9.4-12.3) fl Neut % (Auto) (34.0-71.1) % Lymph % (Auto) (19.3-51.7) % [place] % (Auto) (4.7-12.5) % Eos % (Auto) (0.7-5.8) Baso % (Auto) (0.1-1.2) % Neut # (Auto) (1.56-6.13) K/mm3 Lymph # (Auto) (1.18-3.74) K/mm3 [place] # (Auto) (0.24-0.36) K/mm3 Eos # (Auto) (0.04-0.36) K/mm3 Baso # (Auto) (0.01-0.08) K/mm3 Manual Slide Review Sodium 138 (136-145) mEq/L Potassium 4.2 (3.5-5.1) mEq/L Chloride 103 (98-107) mEq/L Carbon Dioxide 32 (21-32) mEq/L Anion Gap 7.2 (5-15) BUN 10 (7-18) mg/dL Creatinine 0.7 (0.55-1.02) mg/dL Est Cr Clr Drug Dosing 103.32 mL/min Estimated GFR (MDRD) > 60 (>60) mL/min BUN/Creatinine Ratio 14.3 (14-18) Glucose 120 H (74-106) mg/dL Calcium 8.7 (8.5-10.1) mg/dL Total Bilirubin (0.2-1.0) mg/dL AST (15-37) U/L ALT (14-59) U/L Alkaline Phosphatase (46-116) U/L Total Protein (6.4-8.2) g/dl Albumin (3.4-5.0) g/dl Globulin gm/dL Albumin/Globulin Ratio (1-2) Med Orders - Current: Current Medications Bethanechol Chloride (Urecholine) 10 mg PO TID TONI Last Admin: 01/14/19 08:14 Dose: 10 mg Diphenhydramine HCl (Benadryl) 25 mg PO Q6H PRN PRN Reason: Itching Last Admin: 01/14/19 08:20 Dose: 25 mg Hydromorphone HCl (Dilaudid) 0.5 mg IVPUSH Q1H PRN PRN Reason: PAIN Last Admin: 01/13/19 22:31 Dose: 0.5 mg Hydromorphone HCl (Dilaudid) 1 mg IVPUSH Q1H PRN PRN Reason: Pain (severe 7-10) Ondansetron HCl (Zofran) 4 mg IVPUSH Q4H PRN PRN Reason: Nausea Last Admin: 01/13/19 23:01 Dose: 4 mg Oxycodone HCl (Oxycodone) 5 mg PO Q4H PRN PRN Reason: Pain Last Admin: 01/14/19 11:44 Dose: 5 mg Oxycodone/Acetaminophen (Percocet 325-5 Mg) 1 - 2 tab PO Q6H PRN PRN Reason: Pain Last Admin: 01/14/19 10:02 Dose: 1 tab Discontinued Medications Bupivacaine HCl (Marcaine 0.5%) Confirm Administered Dose 30 ml .ROUTE .STK-MED ONE Stop: 01/13/19 07:18 Last Admin: 01/13/19 08:57 Dose: 10 ml Cefazolin Sodium (Ancef) Confirm Administered Dose 2 gm .ROUTE .STK-MED ONE Stop: 01/13/19 07:38 Dexamethasone (Dexamethasone) Confirm Administered Dose 20 mg .ROUTE .STK-MED ONE Stop: 01/13/19 07:39 Diphenhydramine HCl (Benadryl) 25 mg IVPUSH Q6H PRN PRN Reason: Pruritis Stop: 01/13/19 18:00 Last Admin: 01/13/19 11:20 Dose: 25 mg Ephedrine Sulfate (Ephedrine In Ns) Confirm Administered Dose 25 mg .ROUTE .STK- MED ONE Stop: 01/13/19 08:50 Ephedrine Sulfate (Ephedrine Sulfate) 5 mg IVPUSH ASDIRECTED PRN PRN Reason: Hypotension Stop: 01/13/19 18:00 Fentanyl (Sublimaze) Confirm Administered Dose 250 mcg .ROUTE .STK-MED ONE Stop: 01/13/19 07:38 Fentanyl (Sublimaze) 50 mcg IVPUSH Q5M PRN PRN Reason: Pain Stop: 01/13/19 18:00 Last Admin: 01/13/19 11:10 Dose: 50 mcg Fentanyl (Sublimaze) 50 mcg IVPUSH STAT STA Stop: 01/13/19 12:26 Last Admin: 01/13/19 12:28 Dose: 50 mcg Haloperidol Lactate (Haldol) 1 mg IVPUSH ONETIME ONE Stop: 01/13/19 09:10 Last Admin: 01/13/19 17:33 Dose: Not Given Hydromorphone HCl (Dilaudid) 0.5 mg IVPUSH Q15M PRN PRN Reason: severe pain Stop: 01/13/19 18:00 Hydromorphone HCl (Dilaudid) Confirm Administered Dose 0.5 mg .ROUTE .STK-MED ONE Stop: 01/13/19 11:58 Hydromorphone HCl (Dilaudid) Confirm Administered Dose 0.5 mg .ROUTE .STK-MED ONE Stop: 01/13/19 11:58 Hydromorphone HCl (Dilaudid) 0.5 mg IVPUSH STAT ONE Stop: 01/13/19 13:17 Last Admin: 01/13/19 13:19 Dose: 0.5 mg Hydromorphone HCl (Dilaudid) 0.5 mg IVPUSH STAT ONE Stop: 01/13/19 15:35 Last Admin: 01/13/19 15:35 Dose: 0.5 mg Hydromorphone HCl (Dilaudid) 0.5 mg IVPUSH Q1H PRN PRN Reason: Pain Hydromorphone HCl (Dilaudid) 0.5 mg IV Q1H PRN PRN Reason: PAIN Lactated Ringer's (Ringers, Lactated) 1,000 mls @ 125 mls/hr IV ASDIRECTED [facility] Last Admin: 01/13/19 12:35 Dose: 125 mls/hr Lidocaine HCl (Xylocaine-Mpf 1%) Confirm Administered Dose 4 mls @ as directed .ROUTE .STK-MED ONE Stop: 01/13/19 07:38 Lactated Ringer's (Ringers, Lactated) Confirm Administered Dose 1,000 mls @ as directed .ROUTE .STK-MED ONE Stop: 01/13/19 07:38 Lactated Ringer's (Ringers, Lactated) Confirm Administered Dose 1,000 mls @ as directed .ROUTE .STK-MED ONE Stop: 01/13/19 09:44 Ibuprofen (Motrin) 600 mg PO ONETIME ONE Stop: 01/14/19 08:01 Last Admin: 01/14/19 08:13 Dose: 600 mg Ketamine HCl (Ketalar) Confirm Administered Dose 500 mg .ROUTE .STK-MED ONE Stop: 01/13/19 08:58 Ketorolac Tromethamine (Toradol) Confirm Administered Dose 30 mg .ROUTE .STK- MED ONE Stop: 01/13/19 12:50 Ketorolac Tromethamine (Toradol) 15 mg IVPUSH STAT ONE Stop: 01/13/19 13:55 Last Admin: 01/13/19 13:58 Dose: 15 mg Ketorolac Tromethamine (Toradol) 30 mg IVPUSH Q6H TONI Stop: 01/14/19 08:01 Last Admin: 01/14/19 02:00 Dose: 30 mg Lidocaine/Epinephrine (Xylocaine 1% With Epinephrine 1:100,000) Confirm Administered Dose 20 ml .ROUTE .STK-MED ONE Stop: 01/13/19 07:18 Last Admin: 01/13/19 09:32 Dose: 5 ml Lidocaine/Sodium Bicarbonate (Buffered Lidocaine 1% In Ns 8.4%) 0.25 ml IDERM ONETIME PRN PRN Reason: Prior to IV Start Last Admin: 01/13/19 07:20 Dose: 0.25 ml Midazolam HCl (Versed 1 Mg/Ml) Confirm Administered Dose 2 mg .ROUTE .STK-MED ONE Stop: 01/13/19 07:38 Ondansetron HCl (Zofran) Confirm Administered Dose 4 mg .ROUTE .STK-MED ONE Stop: 01/13/19 07:38 Propofol (Diprivan 20 Ml) Confirm Administered Dose 400 mg .ROUTE .STK-MED ONE Stop: 01/13/19 07:38 Rocuronium [place] (Zemuron) Confirm Administered Dose 50 mg .ROUTE .STK-MED ONE Stop: 01/13/19 07:38 Rocuronium [place] (Zemuron) Confirm Administered Dose 50 mg .ROUTE .STK-MED ONE Stop: 01/13/19 12:12 Sodium Chloride (Saline Flush) 10 ml FLUSH ASDIRECTED PRN PRN Reason: Keep Vein Open Sodium Chloride (Normal Saline) Confirm Administered Dose 50 ml .ROUTE .STK-MED ONE Stop: 01/13/19 07:18 Last Admin: 01/13/19 09:32 Dose: 15 ml
== END 2019-01-14 13:42 | disposition home or self-care (01) ==
LOC: JD.SDS 06:49 → JD.MS 18:44 → JD.SDS 01-14 13:42
PROVIDERS: ATTEND Obstetrics & Gynecology
DX: N92.0 Excessive and frequent menstruation with regular cycle (principal); N94.6 Dysmenorrhea, unspecified; N73.6 Female pelvic peritoneal adhesions (postinfective); G43.829 Menstrual migraine, not intractable, without status migrainosus; J30.9 Allergic rhinitis, unspecified; Z79.899 Other long term (current) drug therapy; Z87.891 Personal history of nicotine dependence
CPT/HCPCS: 36415; 58552; 80048; 80053; 81001; 81025; 85025; 86850; 86900; 86901; A9270; J0690; J1100; J1170; J1200; J1885; J2001; J2250; J2405; J2704; J3010; J3490; J7050; J7120; 00944